=== PATIENT | female | born 1940 | race Caucasian/White ===

== ENCOUNTER 2019-10-10 10:45 | Emergency (ER) | payer MEDICARE, BC ==
[~2019-10-10] VITALS: Ht 172.7 cm; Wt 74.8 kg
--- OUTSIDE RECORDS SUMMARY | ~2019-10-10 | XMS | Encounter Summary ---
Demographics + + + | Address | [address] | | | [place] [address] | + + + | Home Phone | | + + + | Preferred Language | Unknown | + + + | Marital Status | | + + + | Mu-Ism Affiliation | Unknown | + + + | Race | Unknown | + + + | Ethnic Group | Unknown | + + + Author + + + | Author | [facility] | | | and [place] | + + + | Organization | [facility] | | | and [place] | + + + | Address | Unknown | + + + | Phone | Unavailable | + + + Support + + +---------+ + | Name | Relationship | Address | Phone | + + +---------+ + | Katerina Dada | ECON | Unknown | | + + +---------+ + | Benjaímn Garland | ECON | Unknown | | + + +---------+ + | Tiago Garland | ECON | Unknown | | + + +---------+ + Care Team Providers + +------+ + | Care Computer Salesperson Retail Name | Role | Phone | + +------+ + | Michael Almonte DO | PCP | | + +------+ + Reason for Visit + + + | Reason | Comments | + + + | Follow-up | 3 month | + + + Encounter Details +--------+---------+ + + + | Date | Type | Department | Care Team | Description | +--------+---------+ + + + | 08/10/ | Office | [facility] | Shoshana Ortega DO | Persistent atrial | | 2019 | Visit | [facility]IOLOGY [place] | [address] | fibrillation | | | | [address] | [place], [place] | (Primary Dx); On | | | | [address] | [phone] | amiodarone therapy; | | | | [place], [place] | | Dissection of aorta, | | | | [address] | | unspecified portion | | | | [phone] | | of aorta (HCC); HTN | | | | | | (hypertension), | | | | | | benign; | | | | | | Hyperlipidemia, | | | | | | unspecified | | | | | | hyperlipidemia type; | | | | | | Stage 4 very severe | | | | | | COPD by GOLD | | | | | | classification (HCC) | +--------+---------+ + + + Social History + +-------+ +--------+------+ | Tobacco Use | Types | Packs/Day | Years | Date | | | | | Used | | + +-------+ +--------+------+ | Former Smoker | | | | | + +-------+ +--------+------+ + +---+---+---+ | Smokeless Tobacco: | | [...] + + documented as of this encounter Last Filed Vital Signs + + + + + | Vital Sign | Reading | Time Taken | Comments | + + + + + | Blood Pressure | 132/58 | 08/10/2019 1:37 PM | | | | | PST | | + + + + + | Pulse | 51 | 08/10/2019 1:37 PM | | | | | PST | | + + + + + | Temperature | - | - | | + + + + + | Respiratory Rate | - | - | | + + + + + | Oxygen Saturation | 79% | 08/10/2019 1:37 PM | | | | | PST | | + + + + + | Inhaled Oxygen | - | - | | | Concentration | | | | + + + + + | Weight | 77.6 kg (171 lb) | 08/10/2019 1:37 PM | | | | | PST | | + + + + + | Height | 172.7 cm (5' 8") | 08/10/2019 1:37 PM | | | | | PST | | + + + + + | Body Mass Index | 26 | 08/10/2019 1:37 PM | | | | | PST | | + + + + + documented in this encounter Progress Notes Shoshana Ortega DO - 08/10/2019 1:40 PM PST [facility] Cardiology Cardiology Follow Up Note Reason for Consultation: afib Requesting Physician: Dr. 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 Sternal MSSA infection Right MCA stroke in 2014 Noncardiac problem list Hypothyroidism COPD Osteoporosis The patient is a 79-year-old female with the above past medical history who presents to the cardiology office for initial consultation regarding a history of atrial fibrillation. The patient had a type 2 aortic dissection in 2014 and had to undergo a surgical repair of her ascending aorta and aortic arch, followed by endovascular repair of her abdominal aorta. Kamilah garcia had a prolonged hospitalization after this, necessitating placement of a tracheostomy and a PEG tube. Since this hospitalization, she has been on oxygen therapy. She also develope d atrial fibrillation during the hospitalization and had a CVA during her AAA procedure. Kamilah garcia was rhythm controlled with amiodarone. She followed up with cardiology in [place]. She was previously on anticoagulation, however, she was felt to be high risk for blood thinners and was subsequently offered a Watchman device. A Watchman was placed in 2018 and she was taken off of her anticoagulation thereafter. Lately, the patient has been feeling about her baseline. She occasionally has mild fleetin g chest pains, which are alleviating with nitroglycerin. She reports that these are rare an d sporadic. She is on 4 liters of oxygen via nasal cannula. Because of her breathing issue s, she is not very active. She is able to do all of her ADLs, but her has to help h er with some of the heavier house chores and needs to be present while she is showering due to balance issues. She sees a security patrol driver in [place], but is interested in transferring her care to pulmonology in [place]. She denies any recent episodes of palpitations or par oxysms of atrial fibrillation that she is aware of. She admits to occasionally getting ligh theaded and dizzy, this is usually when she has issues with breathing. She admits to lower extremity swelling. Over the past week, she has had significant swelling in her left lower extremity as compared to her right. She denies any calf pain. She denies any abrupt henderson es in her breathing. She denies any orthopnea or PND. She denies any recent significant we ight gain. Her blood pressures are generally well controlled. She is noted to be bradycard ic today with a heart rate of 54 beats per minute. Interim History I last saw the patient on 05/18/2019. At that time, she was noted to have unilateral lower extremity edema. A lower extremity ultrasound was obtained and was negative for DVT. We o btained a 2-week event monitor as well as a chest x-ray and she was referred to Pulmonology in [place]. Her 2-week event monitor was notable for sinus bradycardia with an average hea rt rate of 53 beats per minute. There was a 5.58 percent burden of ventricular ectopy. Th ere were no episodes of atrial fibrillation on that study. The chest x-ray was done on 03/2019, which demonstrated post-surgical changes, interstitial thickening suggesting fibrosi s. Since we last saw each other, she has had persistent shortness of breath. She notices i t more when she is in a hurry. She was doing pulmonary rehab, but has been lacks in her exe rcise program recently. She denies any orthopnea or PND. She denies any paroxysms of AFib that she is aware of. She denies any episodes of syncope or presyncope. Review of Systems Constitutional: positive for fatigue. HENT: Negative for nosebleeds. Eyes: Negative for visual disturbance. Respiratory: Negative for cough and positive for shortness of breath. Cardiovascular: see HPI Gastrointestinal: Negative for nausea, vomiting, abdominal pain and blood in stool. Genitourinary: Negative for hematuria or dysuria. Musculoskeletal: Negative for myalgias, back pain and arthralgias. Skin: Negative for color change. Neurological: Negative for syncope and numbness. Positive for occasional dizziness. Hematological: Does not bruise/bleed easily. Psychiatric/Behavioral: The patient is not nervous/anxious. PAST MEDICAL & SURGICAL HISTORY Past Medical History: Diagnosis Date AAA (abdominal aortic aneurysm) (HCC) Angina pectoris (HCC) Arrhythmia Atrial fibrillation (HCC) DM2 (diabetes mellitus, type 2) (HCC) 10/11/2015 HLD (hyperlipidemia) 10/11/2015 HTN (hypertension), benign 03/18/2015 Stroke (HCC) Past Surgical History: Procedure Laterality Date APPENDECTOMY CARDIAC CATHERIZATION SECTION X 2 CHOLECYCTOSTOMY CORONARY ARTERY BYPASS GRAFT HYSTERECTOMY left atrial appendage closure device surgery STENT PLACEMENT ADDITIONAL VESS sternum surgery TONSILLECTOMY TRACHEAL SURGERY MEDICATIONS Home Medications Outpatient Encounter Medications as of 08/10/2019 Medication Sig Dispense Refill Acetaminophen (TYLENOL 8 HOUR PO) Take by mouth. amiodarone (PACERONE) 200 mg tablet Take 200 mg by mouth Daily. aspirin 81 MG tablet Take 81 mg by mouth Daily. atorvaSTATin (LIPITOR) 40 mg tablet Take 40 mg by mouth nightly. cephalexin (KEFLEX) 500 mg capsule Take 500 mg by mouth 4 times daily. cholecalciferol (VITAMIN D-3) 2000 units TABS Take 2,000 Units by mouth Daily. FLUTICASONE PROPIONATE, NASAL, NA by Nasal route. furosemide (LASIX) 20 mg tablet Take 20 mg by mouth 2 times daily. levothyroxine (SYNTHROID) 100 mcg tablet Take 100 mcg by mouth every morning (before br eakfast). melatonin 3 mg TABS Take by mouth nightly as needed. metoprolol tartrate (LOPRESSOR) 50 mg tablet Take 25 mg by mouth 2 times daily. potassium chloride (KLOR-CON) 20 MEQ packet Take 8 mEq by mouth 2 times daily. tiotropium (SPIRIVA HANDIHALER) 18 mcg inhalation capsule Inhale 18 mcg into the lungs Daily. UNABLE TO FIND Med Name: Albuterol Ventolin inhaler venlafaxine (EFFEXOR) 75 MG tablet Take 75 mg by mouth 3 times daily. No facility-administered encounter medications on file as of 08/10/2019. Allergies Allergies Allergen Reactions Percocet [Oxycodone] Other (See Comments) "MADE HER CRAZY!' FAMILY HISTORY Family History Problem Relation Age of Onset Heart disease Mother Stroke Father SOCIAL HISTORY Social History Socioeconomic History Marital status: Spouse name: Not on file Number of children: Not on file Years of education: Not on file Highest education level: Not on file Occupational History Not on file Social Needs Financial resource strain: Not on file Food insecurity: Worry: Not on file Inability: Not on file Transportation needs: Medical: Not on file Non-medical: Not on file Tobacco Use Smoking status: Former Smoker Smokeless tobacco: Never Used Substance and Sexual Activity Alcohol use: Yes Drug use: Never Sexual activity: Not on file Lifestyle Physical activity: Days per week: Not on file Minutes per session: Not on file Stress: Not on file Relationships Social connections: Talks on phone: Not on file Gets together: Not on file Attends roman catholic service: Not on file Active member of club or organization: Not on file Attends meetings of clubs or organizations: Not on file Relationship status: Not on file Intimate partner violence: Fear of current or ex partner: Not on file Emotionally abused: Not on file Physically abused: Not on file Forced sexual activity: Not on file Other Topics Concern Not on file Social History Narrative Not on file PHYSICAL EXAM Vital Signs: There were no vitals taken for this visit. Physical Exam GENERAL: Well developed, well nourished, in no distress. Appears approximately stated age . HEENT: Normocephalic, atraumatic. EYES: PERRL, sclerae anicteric, no xanthelsasmas NECK: No JVD, lymphadenopathy, thyromegaly, bruits. Carotid pulses are 2+ bilaterally LUNGS: On NC oxygen. Clear bilaterally, with no rales, rhonchi or wheezing noted, respirat ions unlabored HEART: Nondisplaced PMI, regular rate and rhythm, S1, S2 normal. No murmurs, rubs or gall ops noted. ABDOMEN: Soft, nontender, no organomegaly, masses or bruits. Bowel sounds are normal in a ll 4 quadrants. EXTREMITIES: No edema. Radial pulses 2+ bilaterally. DP and PT pulses are 2+ bilaterally. SKIN: Warm and dry, capillary refill is normal, no lesions. NEUROLOGIC: Awake, alert and oriented x 3. No focal motor deficits. PSYCHIATRIC: Appropriate, affect appears normal DATA Recent blood work from 10/17/2018 reviewed including white blood cell count 6.1, hemoglobin 13, hematocrit of 40, platelet count 121, total cholesterol 133, triglycerides 110, HDL 51, LDL 60, sodium 139, potassium 4.4, chloride 99, carbon dioxide 26, glucose 173, BUN 18, cre atinine 1.07, AST 21, ALT 16, alkaline phosphatase 146, total bilirubin 1.5, hemoglobin A1c 6.4. Recent blood work from 04/17/2019 reviewed including sodium 141, potassium 3.7, chloride 10 3, carbon dioxide 26, glucose 162, BUN 12, creatinine 1.13, GFR 47, AST 24, ALT 17, alkaline phosphatase 155, total bilirubin 1.6, hemoglobin A1c 6.5, TSH 0.675, white blood cell count 5, hemoglobin 12.1, hematocrit 37.9, platelet count 106. EK05/19/19 ordered and reviewed by myself. Sinus bradycardia 50BPM, non specific t wave a bnormality 08/10/2019 ordered and reviewed by myself sinus bradycardia 48 bpm, right axis deviation, n onspecific interventricular conduction delay, nonspecific ST-T wave abnormality. Last Echo: VINCENT 11/16/17 Conclusions 1. The estimated ejection fraction is 65-70%. 2. No thrombus is visualized within the left atrium. 3. There is no thrombus visualized in the left atrial appendage.VINCENT- one year post-Watchman. A 27-mm Watchman occluder device was placed occluding the left atrial appendage. The device appears well seated. 4. The right ventricular global systolic function is normal. 5. There is trace aortic regurgitation. 6. There is mild mitral regurgitation. 7. There is mild tricuspid regurgitation. 8. There is trace pulmonic regurgitation. 9. There is no pericardial effusion. Last stress test: Last cath: 2014 Impression: 1.Large-caliber right coronary artery with [id number] eccentric stenosis in its proximal portion. 2.Mild stenosis in the mid portion of the left circumflex artery. 3.No significant disease in the remainder of the coronary tree. 4.Left ventricular end-diastolic pressure is modestly elevated at 20 mmHg. 5.Normal left ventricular size and function. Carotid US: AAA screening: Lower extremity US: 08/03/2019 no evidence of DVT. OTHERS: 2 week event monitor 05/25/19 Procedure: Continuous ambulatory ECG for the duration of 13 days. During this recording, t he underlying rhythm is sinus, the lowest heart rate was 38 BPM, the highest heart rate 70 B PM, averaging 53 BPM. During this recording interval, 5025 PACs were recorded; including 31 couplets and one triplet. There were 6 runs of atrial tachycardia the longest of which was 6 beats at 107 bpm, the fastest of which was 4 beats at 118 bpm. She had an overall burden of 0.36% supraventricular ectopic beats. Also, [id number] PVCs were recorded; this represents 5 .58% ventricular ectopic burden. There were no runs of ventricular tachycardia. No pauses or AV conduction abnormalities observed. In the patient's diary, symptoms of shortness of br eath, unspecified symptom, other symptom, headache, dizziness, palpitations, chest discomfor t were all associated with sinus bradycardia. ASSESSMENT & PLAN 1. Paroxysmal atrial fibrillation 2. History of watchman left atrial closure device 3. Sinus bradycardia 4. Hypertension 5. Hyperlipidemia 6. 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 7. Sternal MSSA infection 8. Right MCA stroke in 2014 9. Hypothyroidism 10. Severe COPD - The patient is a 79 yo female with the above past medical history who presents to the car diology office to follow up. She has been rhythm controlled with amiodarone since 2014g h she has severe COPD. She is currently not on anticoagulation due to history of Watchman de vice placement. Recently, she has been doing well from a cardiac standpoint. She underwent a recent 2-week ambulatory monitor which demonstrated an average heart rate of 53 bpm. She denies any episodes of syncope or presyncope. She is on both metoprolol and amiodarone whic h both may be contributing to her bradycardia. She has follow-up with pulmonology next terence h. - Continue ASA 81mg, atorvastatin 40mg daily - Continue amiodarone 200mg po daily -Discontinue metoprolol tartrate 25 mg by mouth twice daily - Continue lasix 20mg po bid - follow up with pulmonology as scheduled - Follow up in 6 months Thank you for allowing me to participate in the care of this patient. Primary Care Physician: DO Shoshana Larios DO 08/10/2019 documented in this enco unter Plan of Treatment +--------+---------+ + + + | Date | Type | Specialty | Care Team | Description | +--------+---------+ + + + | 02/07/ | Office | Cardiology | Shoshana Ortega DO | | | 2019 | Visit | | [address] | | | | | | [place] | | | | | | [id number] | | | | | | | | +--------+---------+ + + + | 03/05/ | Office | Pulmonology | Ronan Rosas MD | | | 2019 | Visit | | [address] | | | | | | [place] | | | | | | [address] | | | | | | | | +--------+---------+ + + + documented as of this encounter Procedures + +--------+ + + + | Procedure Name | Priori | Date/Time | Associated Diagnosis | Comments | | | ty | | | | + +--------+ + + + | ECG 12 LEAD | Routin | 08/10/2019 | Persistent atrial | Results for this | | | e | 1:47 PM | fibrillation On | procedure are in the | | | | PST | amiodarone therapy | results section. | + +--------+ + + + documented in this encounter Results ECG 12 lead (08/10/2019 1:47 PM PST) + + + + + + | Component | Value | Ref Range | Performed | Pathologist | | | | | At | Signature | + + + + + + | VENTRICULAR | 48 | BPM | [facility] | | | RATE EKG | | | | | + + + + + + | ATRIAL RATE | 48 | BPM | [facility] | | + + + + + + | P-R | 202 | ms | [facility] | | | INTERVAL | | | | | + + + + + + | QRS | 124 | ms | [facility] | | | DURATION | | | | | + + + + + + | Q-T | 508 | ms | [facility] | | | INTERVAL | | | | | + + + + + + | Q-T | 453 | ms | [facility] | | | INTERVAL | | | | | | (CORRECTED) | | | | | + + + + + + | P WAVE AXIS | 62 | degrees | [facility] | | + + + + + + | QRS AXIS | -94 | degrees | [facility] | | + + + + + + | T AXIS | 113 | degrees | [facility] | | + + + + + + | INTERPRETAT | Please refer to | | [facility] | | | ION TEXT | Providers office visit | | | | | | note for Providers | | | | | | Interpretation.Confirmed | | | | | | by [facility] [place] Read Only, | | | | | | [facility] [address] ([id number]), | | | | | | editor in chief Salvatore Huggins | | | | | | ([id number]) on 08/10/2019 | | | | | | 2:14:15 PM | | | | + + + + + + + + | Specimen | + + | | + + + + + | Narrative | Performed At | + + + | | | + + + + +---------+ + + | Performing | Address | City/State/Zipcode | Phone Number | | Organization | | | | + +---------+ + + | [facility] | | | | + +---------+ + + documented in this encounter Visit Diagnoses + + | Diagnosis | + + | Persistent atrial fibrillation - Primary Atrial fibrillation | + + | On amiodarone therapy | + + | Dissection of aorta, unspecified portion of aorta (HCC) | + + | HTN (hypertension), benign Essential hypertension, benign | + + | Hyperlipidemia, unspecified hyperlipidemia type | + + | Stage 4 very 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
--- OUTSIDE RECORDS SUMMARY | ~2019-10-10 | XMS | Encounter Summary ---
Demographics + + + | Address | [address] | | | [place] [address] | + + + | Home Phone | | + + + | Preferred Language | Unknown | + + + | Marital Status | | + + + | Druze Affiliation | Unknown | + + + | Race | Unknown | + + + | Ethnic Group | Unknown | + + + Author + + + | Author | [facility] | | | and [place] | + + + | Organization | [facility] | | | [...] Team Providers + +------+ + | Care Environmental Health Safety Manager Name | Role | Phone | + [...] + + | 08/10/ | Office | [facility] | Shoshana Ortega DO | Persistent atrial | | 2019 | Visit | [facility]ARDIOLOGY [place] | [address] | fibrillation | | | | [address] | [place], [place] | (Primary Dx); On | | | | [address] | [phone] | amiodarone therapy; | | | | [place], [place] | | Dissection of aorta, | | | | [address] | | unspecified portion | | | | [phone] | | of aorta (HCC); HTN | [...] Ortega DO - 08/10/2019 1:40 PM PST [facility] Cardiology Cardiology Follow Up Note Reason for [...] amiodarone. She followed up with cardiology in [place]. She was previously on anticoagulation, however, she [...] due to balance issues. She sees a jet inspector in [place], but is interested in transferring her care to pulmonology in [place]. She denies any recent episodes of palpitations [...] and she was referred to Pulmonology in [place]. Her 2-week event monitor was notable for [...] file Gets together: Not on file Attends jehovah's witness service: Not on file Active member of [...] 2014 Impression: 1.Large-caliber right coronary artery with jyqo-kv-znfhtxuu eccentric stenosis in its proximal portion. 2.Mild [...] burden of 0.36% supraventricular ectopic beats. Also, [id number] PVCs were recorded; this represents 5 .58% [...] [place] | | | | | | [address] | | | | | | | | +--------+---------+ + + + | 03/05/ | Office | Pulmonology | Ronan Rosas MD | | | 2019 | Visit | | [address] | | | | | | [place] | | | | | | [address] | | | | | | | [...] | | | | | by [facility] [place] [facility], | | | | | | [facility] [address] ([id number]), | | | | | | brands editor Salvatore Huggins | | | | | | ([id number]) on 08/10/2019 | | | | | [...]
--- OUTSIDE RECORDS SUMMARY | ~2019-10-10 | XMS | Clinical Summary ---
Demographics + + + | Address | [address] | | | [place] [address] | + + + | Home Phone | | + + + | Preferred Language | Unknown | + + + | Marital Status | | + + + | Anglican Affiliation | Unknown | + + + | Race | Unknown | + + + | Ethnic Group | Unknown | + + + Author + + + | Author | [facility] (Historical as of | | | 05-13-19) | + + + | Organization | [facility] (Historical as of | | | 05-13-19) | + + + | Address | Unknown | + + + | Phone | Unavailable | + + + Support + + +---------+ + | Name | Relationship | Address | Phone | + + +---------+ + | Tiago Wiley | ECON | Unknown | | + + +---------+ + Care Team Providers + +------+ + | Care Exchange Architect Name | Role | Phone | + +------+ + | Michael Almonte DO | PP | | + +------+ + Allergies Not on File Current Medications Not on file Active Problems Not on file Social History + +-------+ +--------+------+ | Tobacco Use | Types | Packs/Day | Years | Date | | | | | Used | | + +-------+ +--------+------+ | Never Assessed | | | | | + +-------+ +--------+------+ + + + | Sex Assigned at | Date Recorded | | | | + + + | Not on file | | + + + Plan of Treatment + + + + + | Health Maintenance | Due Date | Last Done | Comments | + + + + + | Vaccine: | | | | | Dtap/Tdap/Td (1 - | 0 | | | | Tdap) | | | | + + + + + | Vaccine: Zoster (1 | | | | | of 2) | 1 | | | + + + + + | DEXA SCAN SCREENING | | | | | | 6 | | | + + + + + | Vaccine: Influenza | | 07/27/2016, 06/01/2015 | | | (#1) | 9 | | | + + + + + | Vaccine: | Completed | 07/27/2016, 04/21/2015 | | | Pneumococcal 65+ | | | | | Low/Medium Risk | | | | + + + + + Results Not on filefrom Last 3 Months Insurance + +--------+ +------+-------+ + | Payer | Benefi | Subscriber | Type | Phone | Address | | | t Plan | ID | | | | | | / | | | | | | | Group | | | | | + +--------+ +------+-------+ + | MEDICARE | MEDICA | [id number] | | | [address] | | | RE | | | | [place] [address] | | | IP-OP | | | | | + +--------+ +------+-------+ + | PREMERA | PREMER | [id number] | | | [address] [address] | | | A BLUE | 4 | | | [place], [place] | | | CARD | | | | [phone] | + +--------+ +------+-------+ + + +--------+ +--------+ + + | Guarantor Name | Accoun | Relation to | Date | Phone | Billing Address | | | t Type | Patient | of | | | | | | | | | | + +--------+ +--------+ + + | JACLYN WILEY | Person | Self [birth year] Home: | | | | al/Fam | | 1940 | [phone] | [place] | | | [place] | | | [phone] | [phone] | + +--------+ +--------+ + +"
--- OUTSIDE RECORDS SUMMARY | ~2019-10-10 | XMS | Encounter Summary ---
Demographics + + + | Address | [address] | | | [place] [address] | + + + | Home Phone | | + + + | Preferred Language | Unknown | + + + | Marital Status | | + + + | Sikhism Affiliation | Unknown | + + + | Race | Unknown | + + + | Ethnic Group | Unknown | + + + Author + + + | Author | [facility] | | | and [place] | + + + | Organization | [facility] | | | [...] Team Providers + +------+ + | Care Furnace Converter Name | Role | Phone | + [...] + + | 10/04/ | Refill | [facility] | Alejandra Barraza | Medication Refill | | 2020 | | CARDIOLOGY [place], Chemistry Intern | | | | | [address] | | | | | | [place] | | | | | | [address] | | | | | | [phone] | | | +--------+--------+ + + + [...] [place] | | | | | | [address] | | | | | | | | +--------+---------+ + + + | 03/05/ | Office | Pulmonology | Ronan Rosas MD | | | 2019 | Visit | | [address] | | | | | | [place] | | | | | | [address] | | | | | | | | +--------+---------+ + + + documented as of this encounter Visit Diagnoses Not on filedocumented in this encounter"
--- OUTSIDE RECORDS SUMMARY | ~2019-10-10 | XMS | Clinical Summary ---
Demographics + + + | Address | [address] | | | [place] [address] | + + + | Home Phone | | + + + | Preferred Language | Unknown | + + + | Marital Status | | + + + | Mu-Ism Affiliation | Unknown | + + + | Race | Unknown | + + + | Ethnic Group | Unknown | + + + Author + + + | Author | [facility] | | | and [place] | + + + | Organization | [facility] | | | [...] Team Providers + +------+ + | Care Nuclear Scientist Name | Role | Phone | + [...] | | 2020 | | | Jacobo Mess Attendant Crew | | +--------+ + + + + [...] | | 2019 | on | | Mess Attendant Crew | | +--------+ + + + + [...] | | | | | | classification ([facility]) | +--------+ + + + + from [...] [place] | | | | | | [address] | | | | | | | | +--------+---------+ + + + | 03/05/ | Office | Pulmonology | Ronan Rosas MD | | | 2020 | Visit | | [address] | | | | | | [place] | | | | | | [address] | | | | | | | [...] | | | | | by [facility] Read [facility], | | | | | | [facility] (502), | | | | | | photographic editor Salvatore Huggins | | | | | | (513) on 08/10/2019 | | | | | [...] +--------+ +---------+--------+ | MEDICARE | MEDICA | [id number] | 01/26/20 | [phone] | | Medica | | | RE | | 06-Pre | 5 | | re | | | PART A | | sent | | | | | | AND B | | | | | | + +--------+ +--------+ +---------+--------+ | BCBS | BCBS | [id number] | 09/27/19 | | | Indemn | [...] | | al/Fam | | 1940 | [phone] | [place] | | | [place] | | | 7 (Home) | [address] | + +--------+ +--------+ + + Advance Directives + + + + + | Type | Date Recorded | Patient | Explanation | | | | Soft Metals Hand Engraver | | + + + + + | Power of | | | | | Horticultural Nursery Assistant | | | | + + + + + | Advance | | | | | Directive | | | | + + + + +
--- OUTSIDE RECORDS SUMMARY | ~2019-10-10 | XMS | Clinical Summary ---
Demographics + + + | Address | [address] | | | [place] [address] | + + + | Home Phone | | + + + | Preferred Language | Unknown | + + + | Marital Status | | + + + | Methodist Affiliation | Unknown | + + + | Race | Unknown | + + + | Ethnic Group | Unknown | + + + Author + + + | Author | [facility] (Historical as of | | | 05-13-19) | + + + | Organization | [facility] (Historical as of | | | 05-13-19) [...] Team Providers + +------+ + | Care Pharmacy Affairs Assistant Name | Role | Phone | + [...] +------+-------+ + | MEDICARE | MEDICA | [id number] | | | [address] | | | RE | | | | [place] [address] | | | IP-OP | | | | | + +--------+ +------+-------+ + | PREMERA | PREMER | [id number] | | | [address] [address] | | | A BLUE | 4 | | | [place], [place] | | | CARD | | | | [address] | + +--------+ +------+-------+ + + +--------+ [...] | [place] | | | [address] | [address] | + +--------+ +--------+ + +"
--- OUTSIDE RECORDS SUMMARY | ~2019-10-10 | XMS | Encounter Summary ---
Demographics + + + | Address | [address] | | | [place] [address] | + + + | Home Phone | | + + + | Preferred Language | Unknown | + + + | Marital Status | | + + + | Christian Affiliation | Unknown | + + + | Race | Unknown | + + + | Ethnic Group | Unknown | + + + Author + + + | Author | [facility] | | | and [place] | + + + | Organization | [facility] | | | and [...] Team Providers + +------+ + | Care It Disaster Recovery Manager Name | Role | Phone | + +------+ + | Michael Almonte DO | PCP | | + +------+ + Reason for Visit +--------+ + | Reason | Comments | +--------+ + | Other | COPD | +--------+ + Evaluate & Treat (Routine) + + + + + + + | Status | Reason | Specialty | Diagnoses / | Referred By | Referred To | | | | | Procedures | Contact | Contact | + + + + + + + | Authorized | Specialty | Pulmonary | Diagnoses | Ortega, | Tan | | | Services | Disease / | Chronic | DO Shoshana | Pulmonology | | | Required | Pulmonology | obstructive | [address] | | | | | pulmonary | [address] | [address] | | | | | disease, | [place] | [place], [place] | | | | | unspecified | [place], [place] | [address] | | | | | COPD type | [address] | Phone: | | | | | ([facility]) | Phone: | [phone] | | | | | | [phone] | Fax: | | | | | | Fax: | [phone] | | | | | | [phone] | | + + + + + + + Encounter Details +--------+---------+ + + + | Date | Type | Department | Care Team | Description | +--------+---------+ + + + | 08/29/ | Office | [facility] | Ronan Rosas MD | Oxygen dependent | | 2019 | Visit | PULMONOLOGY [address] | [address] | (Primary Dx); Stage | | | | [address] | [place], [place] | 4 very severe COPD | | | | [place], [place] | [id number] | by GOLD | | | | [address] | | classification (HCC) | | | | [phone] | | | +--------+---------+ + + + Social History [...] + documented in this encounter Progress Notes Ronan Rosas MD - 08/29/2019 1:20 PM PST Subjective: Patient ID: Jaclyn Garland 79 y.o. is here for establishing care for COPD . HPI Patient's medications, allergies, past medical, surgical, social and family histories were obtained and reviewed as appropriate. The patient is a pleasant 79-year-old female with past medical history of severe COPD who i s being followed up in [place] for the past many years. She has recently decided to move h er care to pulmonology services close to her house as her independent beauty consultant has also changed to [facility] clinic. The patient has a history of stroke, atrial fibrillation, arrhythmia and abdo guru aortic aneurysm. In 2014 the patient had a type B aortic dissection and was admitted and intubated and was in the hospital for 2 to 3 months. She also had a stroke at the same time and had tracheostomy. She was successfully decannulated and now has been followed up w daniel Newby in [facility]. She has been managed with Spiriva which she has been using regularly. She denies any frequ ent hospitalizations. She has very minimal activity because of stroke and that she likes to stay indoors. She very rarely goes to grocery shopping with her daughter. She is on chron ic oxygen which he uses 3 L continuous at home and 4 L pulsed when walking. In the past she was worked up for obstructive sleep apnea and was found to have hypoxia wit h no apneic interval. She was advised to continue oxygen and the hypoxia in the night was f elt secondary to COPD. She has atrial fibrillation and she has a watchman device. She is a former smoker who quit in 2010. She did secretarial jobs. She has no major chemi stanton exposure. She is a heavy alcohol drinker and continues to drink alcohol. Review of Systems Constitutional: Positive for weight loss. HENT: Negative. Respiratory: Positive for cough and shortness of breath. Cardiovascular: Negative. Gastrointestinal: Negative. Genitourinary: Negative. Musculoskeletal: Negative. Skin: Negative. Neurological: Negative. Endo/Heme/Allergies: Negative. Psychiatric/Behavioral: Negative. History: Past Medical History: Diagnosis Date AAA (abdominal [...] ADDITIONAL VESS sternum surgery TONSILLECTOMY TRACHEAL SURGERY Social History Socioeconomic History Marital status: Spouse [...] file Tobacco Use Smoking status: Former Smoker Packs/day: 0.50 Years: 50.00 Pack years: 25.00 Last attempt to quit: 2013 Years since quittin.9 Smokeless tobacco: Never Used Substance and Sexual Activity Alcohol use: Yes Drug use: Never Sexual activity: Not on file Lifestyle Physical activity: Days per week: Not on file Minutes per session: Not on file Stress: Not on file Relationships Social connections: Talks on phone: Not on file Gets together: Not on file Attends jainism service: Not on file Active member of [...] file Social History Narrative Not on file Family History Problem Relation Age of Onset Heart disease Mother Stroke Father Allergies: Allergies Allergen Reactions Percocet [Oxycodone] Other (See Comments) "MADE HER CRAZY!' Current Medications: Current Outpatient Medications on File Prior to Visit Medication Sig Dispense Refill Acetaminophen (TYLENOL 8 [...] TABS Take by mouth nightly as needed. Nitroglycerin (NITROSTAT SL) Place under the tongue. potassium chloride (KLOR-CON) 20 MEQ packet Take 8 mEq by mouth 2 times daily. tiotropium (SPIRIVA HANDIHALER) 18 mcg inhalation capsule Inhale 18 mcg into the lungs Daily. UNABLE TO FIND Med Name: Albuterol Ventolin inhaler venlafaxine (EFFEXOR) 75 MG tablet Take 75 mg by mouth 3 times daily. No current facility-administered medications on file prior to visit. Objective: Vitals: 08/29/19 1323 BP: 121/64 Pulse: 109 PainSc: 0 - No pain Physical Exam Constitutional: She is oriented to person, place, and time and well-developed, well-nourish ed, and in no distress. HENT: Head: Normocephalic and atraumatic. Mouth/Throat: No oropharyngeal exudate. Eyes: Pupils are equal, round, and reactive to light. Conjunctivae and EOM are normal. Neck: Normal range of motion. Neck supple. No JVD present. No tracheal deviation present. Cardiovascular: Normal rate, regular rhythm and normal heart sounds. No murmur heard. Pulmonary/Chest: Effort normal and breath sounds normal. No respiratory distress. She has n o wheezes. She has no rales. She exhibits no tenderness. Musculoskeletal: Normal range of motion. General: No edema. Neurological: She is alert and oriented to person, place, and time. No cranial nerve defici t. Gait normal. Skin: Skin is warm. Psychiatric: Affect and judgment normal. Chart review from legacy visits was done Assessment and plan 1. Oxygen dependent I have advised the patient to continue using oxygen at 3 to 4 L/min to keep oxygen saturati on more than 89%. 2. 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 She seems to be doing wel l on Spiriva. She has no frequent exacerbations. She will use albuterol as needed. She is not a good candidate for lung cancer screening du e to being oxygen dependent. Thank you for allowing me to participate in your patient's care. We will review test result s that we have ordered with the patient once they become available. A return visit has been scheduled in 6 months. Ronan Rosas MD Pulmonary and Critical Care Medicine [facility] [address] , [place] [address] documented in this enco unter Plan of Treatment +--------+---------+ + + + | Date | Type | Specialty | Care Team | Description | +--------+---------+ + + + | 02/07/ | Office | Cardiology | Shoshana Ortega DO | | | 2019 | Visit | | [address] | | | | | | [place] | | | | | | [phone] | | | | | | | | +--------+---------+ + + + | 03/05/ | Office | Pulmonology | Ronan Rosas MD | | | 2019 | Visit | | [address] | | | | | | [place] | | | | | | [address] | | | | | | | | +--------+---------+ + + + documented as of this encounter Visit Diagnoses + + | Diagnosis | + + | Oxygen dependent - Primary Dependence on supplemental oxygen | + + | Stage 4 very 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
--- OUTSIDE RECORDS SUMMARY | ~2019-10-10 | XMS | Encounter Summary ---
Demographics + + + | Address | [address] | | | [place] [address] | + + + | Home Phone | | + + + | Preferred Language | Unknown | + + + | Marital Status | | + + + | Hinduism Affiliation | Unknown | + + + | Race | Unknown | + + + | Ethnic Group | Unknown | + + + Author + + + | Author | [facility] | | | and [place] | + + + | Organization | [facility] | | | [...] Team Providers + +------+ + | Care Director Of Speech Pathology Name | Role | Phone | + [...] | | disease, | [address] | [place], [place] | | | | | unspecified | [place], [place] | [address] | | | | | COPD type | [address] | Phone: | | | | | ([facility]) | Phone: | [phone] | | | | | | [phone] | Fax: | | | | | | Fax: | [phone] | | | | | | [phone] | | + + + + + + + Encounter Details +--------+---------+ + + + | Date | Type | Department | Care Team | Description | +--------+---------+ + + + | 08/29/ | Office | [facility] | Ronan Rosas MD | Oxygen dependent | | 2019 | Visit | PULMONOLOGY [address] | [address] | (Primary Dx); Stage | | | | [address] | [place], [place] | 4 very severe COPD | | | | [place], [place] | [id number] | by GOLD | | | | [address] | | classification (HCC) | | | | [phone] | | | +--------+---------+ + + + [...] who i s being followed up in [place] for the past many years. She has recently decided to move h er care to pulmonology services close to her house as her standard machine stitcher has also changed to [facility] clinic. The patient has a history of [...] been followed up w daniel Newby in [facility]. She has been managed with Spiriva which [...] file Gets together: Not on file Attends moravian service: Not on file Active member of [...] Rosas MD Pulmonary and Critical Care Medicine [facility] [address] , [place] [address] documented in this enco unter Plan of Treatment +--------+---------+ + + + | Date | Type | Specialty | Care Team | Description | +--------+---------+ + + + | 02/07/ | Office | Cardiology | Shoshana Ortega DO | | | 2019 | Visit | | [address] | | | | | | [place] | | | | | | [phone] | | | | | | | | +--------+---------+ + + + | 03/05/ | Office | Pulmonology | Ronna Rosas MD | | | 2019 | Visit | | [address] | | | | | | [place] | | | | | | [address] | | | | | | | | +--------+---------+ + + + documented as of this encounter Visit Diagnoses + + | Diagnosis | + + | Oxygen dependent - Primary Dependence on supplemental oxygen | + + | Stage 4 very 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
--- OUTSIDE RECORDS SUMMARY | ~2019-10-10 | XMS | Encounter Summary ---
Demographics + + + | Address | [address] | | | [place] [address] | + + + | Home Phone | | + + + | Preferred Language | Unknown | + + + | Marital Status | | + + + | Restoration Affiliation | Unknown | + + + | Race | Unknown | + + + | Ethnic Group | Unknown | + + + Author + + + | Author | [facility] | | | and [place] | + + + | Organization | [facility] | | | [...] Team Providers + +------+ + | Care Low Altitude Air Defense Officer Name | Role | Phone | + +------+ + | Michael Almonte DO | PCP | | + +------+ + Reason for Visit +--------+ + | Reason | Comments | +--------+ + | Other | Cardiac Event Monitor | +--------+ + Encounter Details +--------+ + + + + | Date | Type | Department | Care Team | Description | +--------+ + + + + | 05/25/ | Clinical | [facility] | Shoshana Ortega DO | Persistent atrial | | 2019 | Support | CARDIOLOGY [place] | [address] | fibrillation (HCC) | | | | [address] | [place] | | | | | [address] | [address] | | | | | [place] | | | | | | [address] | Oskar Quiles, | | | | | [phone] | MD [address] | | | | | | [place] | | | | | | [address] | | | | | | | | +--------+ + + + [...] documented as of this encounter Progress Notes Alejandra Barraza, Analyst [employer] - 05/25/2019 1:45 PM PDTCardiac Event Monitor placed on patient. EOB/Billing information discussed. Instructions given and understood. Patient instructed to call [facility] for any billing or monitor questions. JDW:FREIGHT CLAIM INVESTIGATOR-AAMA. [facility] umented in this encounter Plan of Treatment +--------+---------+ + + + | Date | Type | Specialty | Care Team | Description | +--------+---------+ + + + | 02/07/ | Office | Cardiology | Shoshana Ortega DO | | | 2019 | Visit | | [address] | | | | | | [place] | | | | | | [phone] | | | | | | | | +--------+---------+ + + + | 03/05/ | Office | Pulmonology | Ronan Rosas MD | | | 2019 | Visit | | [address] | | | | | | [place] | | | | | | [phone] | | | | | | | | +--------+---------+ + + + documented as of this encounter Visit Diagnoses + + | Diagnosis | + + | Persistent atrial fibrillation Atrial fibrillation | + + documented in this encounter"
--- OUTSIDE RECORDS SUMMARY | ~2019-10-10 | XMS | Encounter Summary ---
Demographics + + + | Address | [address] | | | [place] [address] | + + + | Home Phone | | + + + | Preferred Language | Unknown | + + + | Marital Status | | + + + | Hindu Affiliation | Unknown | + + + | Race | Unknown | + + + | Ethnic Group | Unknown | + + + Author + + + | Author | [facility] | | | and [place] | + + + | Organization | [facility] | | | and [...] | + + +---------+ + | Tiago Garalnd | ECON | Unknown | | + + +---------+ + Care Team Providers + +------+ + | Care Quality Lead Name | Role | Phone | + +------+ + | Michael Almonte DO | PCP | | + +------+ + Reason for Referral Evaluate & Treat (Routine) + + + + + + + | Status | Reason | Specialty | Diagnoses / | Referred By | Referred To | | | | | Procedures | Contact | Contact | + + + + + + + | Authorized | Specialty | Pulmonary | Diagnoses | Jordan | Tan | | | Services | Disease / | Chronic | DO Shoshana | Pulmonology | | | Required | Pulmonology | obstructive | [address] | | | | | pulmonary | [address] | [address] | | | | | disease, | [address] | [place], [place] | | | | | unspecified | [place], [place] | [address] | | | | | COPD type | [address] | Phone: | | | | | ([facility]) | Phone: | [phone] | | | | | | [phone] | Fax: | | | | | | Fax: | [phone] | | | | | | [phone] | | + + + + + + + Diagnostic/Screening (Routine) +--------+--------+ + + + + | Status | Reason | Specialty | Diagnoses / | Referred By | Referred To | | | | | Procedures | Contact | Contact | +--------+--------+ + + + + | Closed | | Radiology | Diagnoses | Ortega, | | | | | | Leg | DO Shoshana | | | | | | swelling | [address] | | | | | | Procedures | [address] | | | | | | VAS Lower | [address] | | | | | | Extremity | [place] | | | | | | Venous Left | [address] | | | | | | | Phone: | | | | | | | [phone] | | | | | | | Fax: | | | | | | | [phone] | | +--------+--------+ + + + + Reason for Visit + + + | Reason | Comments | + + + | New Patient | NEW PATIENT | + + + Evaluate & Treat (Routine) + +--------+ + + + + | Status | Reason | Specialty | Diagnoses / | Referred By | Referred To | | | | | Procedures | Contact | Contact | + +--------+ + + + + | Authorized | | Cardiology | Diagnoses | Kargar, | Ortega, | | | | | Persistent | Michael, DO | Shoshana DO | | | | | atrial | [address] | [address] | | | | | fibrillation | Tanya Mendiola | [address] | | | | | ([facility]), | [address] | [place], [place] | | | | | Presence of | [place], | [address] Phone: | | | | | other | [place] | [phone] | | | | | cardiac | [address] | Fax: | | | | | implants and | Phone: | [phone] | | | | | grafts | [phone] | | | | | | Procedures | Fax: | | | | | | Consult | [phone] | | + +--------+ + + + + Encounter Details +--------+---------+ + + + | Date | Type | Department | Care Team | Description | +--------+---------+ + + + | 05/18/ | Office | [facility] | Shoshana Ortega DO | Persistent atrial | | 2019 | Visit | CARDIOLOGY [place] | [address] | fibrillation (HCC) | | | | [address] | [place], [place] | (Primary Dx); Leg | | | | [address] | [address] | swelling; Cerebral | | | | [place], [place] | | atherosclerosis ; On | | | | [address] | | amiodarone therapy; | | | | [phone] | | Chronic obstructive | | | | | | pulmonary disease, | | | | | | unspecified COPD | | | | | | type (HCC); | | | | | | Dissection of aorta, | | | | | | unspecified portion | | | | | | of aorta (HCC); | | | | | | Ascending aortic | | | | | | aneurysm (HCC); HTN | | | | | | (hypertension), | | | | | | benign; | | | | | | Hyperlipidemia, | | | | | | unspecified | | | | | | hyperlipidemia type | +--------+---------+ + + + Social History [...] + + + | Blood Pressure | 124/64 | 05/18/2019 11:11 AM | | | | | PDT | | + + + + + | Pulse | 54 | 05/18/2019 11:11 AM | | | | | PDT | | + + + + + | Temperature | - | - | | + + + + + | Respiratory Rate | - | - | | + + + + + | Oxygen Saturation | 83% | 05/18/2019 11:11 AM | | | | | PDT | | + + + + + | Inhaled Oxygen | - | - | | | Concentration | | | | + + + + + | Weight | 73 kg (161 lb) | 05/18/2019 11:11 AM | | | | | PDT | | + + + + + | Height | 172.7 cm (5' 8") | 05/18/2019 11:11 AM | | | | | PDT | | + + + + + | Body Mass Index | 24.48 | 05/18/2019 11:11 AM | | | | | PDT | | + + + + + documented in this encounter Progress Notes Shoshana Ortega DO - 05/18/2019 10:[address] [facility] Cardiology Cardiology Consult Note Reason for Consultation: afib Requesting Physician: Dr. 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 Sternal MSSA infection Right MCA stroke in 2015 Noncardiac problem list Hypothyroidism COPD Osteoporosis The [...] amiodarone. She followed up with cardiology in [place]. She was previously on anticoagulation, however, she [...] due to balance issues. She sees a molder helper in [place], but is interested in transferring her care to pulmonology in [place]. She denies any recent episodes of palpitations [...] heart rate of 54 beats per minute. Review of Systems Constitutional: positive for fatigue. [...] Angina pectoris (HCC) Arrhythmia Atrial fibrillation (HCC) Stroke (HCC) Past Surgical History: Procedure Laterality Date APPENDECTOMY CARDIAC CATHERIZATION SECTION X 2 CHOLECYCTOSTOMY CORONARY ARTERY BYPASS GRAFT HYSTERECTOMY left atrial appendage closure device surgery STENT PLACEMENT ADDITIONAL VESS sternum surgery TONSILLECTOMY TRACHEAL SURGERY MEDICATIONS Home Medications Outpatient Encounter Medications as of 05/18/2019 Medication Sig Dispense Refill Acetaminophen (TYLENOL 8 [...] facility-administered encounter medications on file as of 05/18/2019. Allergies Allergies Allergen Reactions Percocet [Oxycodone] Other (See Comments) "MADE HER CRAZY!' FAMILY HISTORY Family History Problem Relation Age of Onset Heart disease Mother Stroke Father SOCIAL HISTORY Social History Socioeconomic History Marital status: Spouse name: Not on file Number of children: Not on file Years of education: Not on file Highest education level: Not on file Social Needs Financial resource strain: Not on file Food insecurity - worry: Not on file Food insecurity - inability: Not on file Transportation needs - medical: Not on file Transportation needs - non-medical: Not on file Occupational History Not on file Tobacco Use Smoking status: Former Smoker Smokeless tobacco: Never Used Substance and Sexual Activity Alcohol use: Yes Drug use: Never Sexual activity: Not on file Other Topics Concern Not on file Social History Narrative Not on file PHYSICAL EXAM Vital Signs: BP 124/64 | Pulse 54 | Ht 1.727 m (5' 8") | Wt 73 kg (161 lb) | SpO2 (!) 8 3% | BMI 24.48 kg/m Physical Exam GENERAL: Well developed, well nourished, [...] 146, total bilirubin 1.5, hemoglobin A1c 6.4. EK05/19/19 ordered and reviewed by myself. Sinus bradycardia 50BPM, non specific t wave a bnormality Last Echo: VINCENT 11/16/17 Conclusions 1. The [...] 2014 Impression: 1.Large-caliber right coronary artery with etea-qa-ldltwvkt eccentric stenosis in its proximal portion. 2.Mild stenosis in the mid portion of the left circumflex artery. 3.No significant disease in the remainder of the coronary tree. 4.Left ventricular end-diastolic pressure is modestly elevated at 20 mmHg. 5.Normal left ventricular size and function. Carotid US: AAA screening: Lower extremity US: OTHERS: ASSESSMENT & PLAN 1 Paroxysmal atrial fibrillation 2. History of watchman left atrial closure device 3. Hypertension 4. Hyperlipidemia 5. 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 6. Sternal MSSA infection 7. Right MCA stroke in 2015 8. Hypothyroidism 9. Severe COPD - The patient is a 79 yo female with the above past medical history who presents to the car diology office to establish care. She has been rhythm controlled with amiodarone since 2015 though she has severe COPD. She is currently not on anticoagulation due to history of Watchm an device placement. Recently, she has been doing well from a cardiac standpoint. She is not ed to have unilateral LE edema on physical exam today. - obtain a LLE venous US - Continue ASA 81mg, atorvastatin 40mg daily - Continue amiodarone 200mg po daily - Continue lasix 20mg po bid - Will obtain a 2 week event monitor - obtain a CXR - obtain blood work including TSH, CMP, lipid panel, CBC - she would like to establish with pulmonology in [place], will place referral - Follow up in 3 months Thank you for allowing me to participate in the care of this patient. Primary Care Physician: DO Shoshana Larios DO 05/18/2019 documented in this enco unter Plan of Treatment +--------+---------+ + + + | Date | Type | Specialty | Care Team | Description | +--------+---------+ + + + | 02/07/ | Office | Cardiology | Shoshana Ortega DO | | | 2019 | Visit | | [address] | | | | | | [place] | | | | | | [address] | | | | | | | | +--------+---------+ + + + | 03/05/ | Office | Pulmonology | Ronan Rosas MD | | | 2019 | Visit | | [address] | | | | | | [place] | | | | | | [address] | | | | | | | | +--------+---------+ + + + + +---------+--------+ + + | Name | Type | Priori | Associated Diagnoses | Order Schedule | | | | ty | | | + +---------+--------+ + + | VAS Lower Extremity | Imaging | Routin | Leg swelling | Expected: | | Venous Left | | e | | 05/18/2019, Expires: | | | | | | 05/18/2020 | + +---------+--------+ + + | Event monitor - 2 | ECG | Routin | Persistent atrial | Expected: | | week | | e | fibrillation (HCC) | 05/25/2019, Expires: | | | | | | 05/18/2020 | + +---------+--------+ + + | Comprehensive | Lab | Routin | Persistent atrial | 1 Occurrences | | Metabolic Panel | | e | fibrillation (HCC) | starting 05/18/2019 | | | | | | until 05/18/2020 | + +---------+--------+ + + | TSH, Reflex Free T4 | Lab | Routin | Persistent atrial | 1 Occurrences | | | | e | fibrillation (HCC) | starting 05/18/2019 | | | | | | until 05/18/2020 | + +---------+--------+ + + | CBC w/ Auto | Lab | Routin | Persistent atrial | 1 Occurrences | | Differential | | e | fibrillation (HCC) | starting 05/18/2019 | | | | | | until 05/18/2020 | + +---------+--------+ + + | Lipid Panel | Lab | Routin | Cerebral | 1 Occurrences | | | | e | atherosclerosis | starting 05/18/2019 | | | | | Persistent atrial | until 05/18/2020 | | | | | fibrillation (HCC) | | + +---------+--------+ + + | XR Chest 1 Vw | Imaging | Routin | On amiodarone | Expected: | | | | e | therapy | 05/18/2019, Expires: | | | | | | 05/18/2020 | + +---------+--------+ + + + + +--------+ + + | Name | Type | Priori | Associated Diagnoses | Order Schedule | | | | ty | | | + + +--------+ + + | Ambulatory Referral | Outpatient | Routin | Chronic | Ordered: 05/18/2019 | | to Katheryn | Referral | e | obstructive | | | Pulmonology | | | pulmonary disease, | | | | | | unspecified COPD | | | | | | type (HCC) | | + + +--------+ + + documented as of this encounter Procedures + +--------+ + + + | Procedure Name | Priori | Date/Time | Associated Diagnosis | Comments | | | ty | | | | + +--------+ + + + | ECG 12 LEAD | Routin | 05/18/2019 | Persistent atrial | Results for this | | | e | 11:17 AM | fibrillation (HCC) | procedure are in the | | | | PDT | | results section. | + +--------+ + + + documented in this encounter Results ECG 12 lead (05/18/2019 11:17 AM PDT) + + + + + + | Component | Value | Ref Range | Performed | Pathologist | | | | | At | Signature | + + + + + + | VENTRICULAR | 50 | BPM | [facility] | | | RATE EKG | | | | | + + + + + + | ATRIAL RATE | 50 | BPM | [facility] | | + + + + + + | P-R | 196 | ms | [facility] | | | INTERVAL | | | | | + + + + + + | QRS | 128 | ms | [facility] | | | DURATION | | | | | + + + + + + | Q-T | 482 | ms | [facility] | | | INTERVAL | | | | | + + + + + + | Q-T | 439 | ms | [facility] | | | INTERVAL | | | | | | (CORRECTED) | | | | | + + + + + + | P WAVE AXIS | 76 | degrees | [facility] | | + + + + + + | QRS AXIS | -90 | degrees | [facility] | | + + + + + + | T AXIS | 94 | degrees | [facility] | | + + + + + + | INTERPRETAT | Please refer to | | [facility] | | | ION TEXT | Providers office visit | | | | | | note for Providers | | | | | | Interpretation.Confirmed | | | | | | by [facility] [place] Read Only, | | | | | | [facility] [place] ([id number]), | | | | | | make up editor Salvatore Huggins | | | | | | ([phone]) on 05/18/2019 | | | | | | 1:08:07 PM | | | | + + [...] Primary Atrial fibrillation | + + | Leg swelling Swelling of limb | + + | Cerebral atherosclerosis Cerebral atherosclerosis | + + | On amiodarone therapy | + + | Chronic obstructive pulmonary disease, unspecified COPD type (HCC) | + + | Dissection of aorta, unspecified portion of aorta (HCC) | + + | Ascending aortic aneurysm (HCC) Thoracic aneurysm without mention of rupture | + + | HTN (hypertension), benign Essential hypertension, benign | + + | Hyperlipidemia, unspecified hyperlipidemia type | + + documented in this encounter
--- OUTSIDE RECORDS SUMMARY | ~2019-10-10 | XMS | Encounter Summary ---
Demographics + + + | Address | [address] | | | [place] [address] | + + + | Home Phone | | + + + | Preferred Language | Unknown | + + + | Marital Status | | + + + | Shinto Affiliation | Unknown | + + + | Race | Unknown | + + + | Ethnic Group | Unknown | + + + Author + + + | Author | [facility] | | | and [place] | + + + | Organization | [facility] | | | [...] Team Providers + +------+ + | Care Barrel Raiser Helper Name | Role | Phone | + [...] + + | 10/04/ | Refill | [facility] | Alejandra Barraza | Medication Refill | | 2020 | | CARDIOLOGY [place], Real Estate Loan Processor | | | | | [address] | | | | | | [place] | | | | | | [address] | | | | | | [phone] | | | +--------+--------+ + + + [...] [place] | | | | | | [address] | | | | | | | | +--------+---------+ + + + | 03/05/ | Office | Pulmonology | Ronan Rosas MD | | | 2019 | Visit | | [address] | | | | | | [place] | | | | | | [address] | | | | | | | | +--------+---------+ + + + documented as of this encounter Visit Diagnoses Not on filedocumented in this encounter"
--- OUTSIDE RECORDS SUMMARY | ~2019-10-10 | XMS | Encounter Summary ---
Demographics + + + | Address | [address] | | | [place] [address] | + + + | Home Phone | | + + + | Preferred Language | Unknown | + + + | Marital Status | | + + + | Hinduism Affiliation | Unknown | + + + | Race | Unknown | + + + | Ethnic Group | Unknown | + + + Author + + + | Author | [facility] | | | and [place] | + + + | Organization | [facility] | | | [...] Team Providers + +------+ + | Care Stenotypist Name | Role | Phone | + +------+ + | Michael Almonte DO | PCP | | + +------+ + Encounter Details +--------+ + + + + | Date | Type | Department | Care Team | Description | +--------+ + + + + | 08/29/ | Documentati | [facility] | Grazyna Espinoza, | | | 2018 | on | PULMONOLOGY [address] | Corporate Attorney | | | | | [address] | | | | | | [place] | | | | | | [address] | | | | | | [phone] | | | +--------+ + + + [...] of this encounter Progress Notes Grazyna Espinoza, Corporate Attorney - 08/29/2019 1:55 PM PST3 step testing Oximetry Exerci se (code) 58339 1. At rest on room air: Time:1:40 [...] [place] | | | | | | [id number] | | | | | | | | +--------+---------+ + + + | 03/05/ | Office | Pulmonology | Ronan Rosas MD | | | 2019 | Visit | | [address] | | | | | | [place] | | | | | | [address] | | | | | | | | +--------+---------+ + + + documented as of this encounter Visit Diagnoses Not on filedocumented in this encounter"
--- OUTSIDE RECORDS SUMMARY | ~2019-10-10 | XMS | Encounter Summary ---
Demographics + + + | Address | [address] | | | [place] [address] | + + + | Home Phone | | + + + | Preferred Language | Unknown | + + + | Marital Status | | + + + | Christian Affiliation | Unknown | + + + | Race | Unknown | + + + | Ethnic Group | Unknown | + + + Author + + + | Author | [facility] | | | and [place] | + + + | Organization | [facility] | | [...] Team Providers + +------+ + | Care Tibco Developer Name | Role | Phone | + [...] | | disease, | [address] | [place], [place] | | | | | unspecified | [place], [place] | [address] | | | | | COPD type | [address] | Phone: | | | | | ([facility]) | Phone: | [phone] | | | | | | [phone] | Fax: | | | | | | Fax: | [phone] | | | | | | [phone] | | + + + + + [...] | | | | Venous Left | [address] | | | | | | | Phone: | | | | | | | [phone] | | | | | | | Fax: | | | | | | | [phone] | | +--------+--------+ + + + + [...] MO F | | | | | ([facility]), | [address] | [place], [place] | | | | | Presence of | [place], | [address] Phone: | | | | | other | [place] | [phone] | | | | | cardiac | [address] | Fax: | | | | | implants and | Phone: | [phone] | | | | | grafts | [phone] | | | | | | Procedures | Fax: | | | | | | Consult | [phone] | | + +--------+ + + + + Encounter Details +--------+---------+ + + + | Date | Type | Department | Care Team | Description | +--------+---------+ + + + | 05/18/ | Office | [facility] | Shoshana Ortega DO | Persistent atrial | | 2019 | Visit | CARDIOLOGY [place] | [address] | fibrillation (HCC) | | | | [address] | [address] [place], [place] | (Primary Dx); Leg | | | | [address] | [address] | swelling; Cerebral | | | | [place], [place] | | atherosclerosis ; On | | | | [address] | | amiodarone therapy; | | | | [phone] | | Chronic obstructive | | | [...] Ortega DO - 05/18/2019 10:40 AM PDT [facility] Cardiology Cardiology Consult Note Reason for Consultation: [...] amiodarone. She followed up with cardiology in [place]. She was previously on anticoagulation, however, she [...] due to balance issues. She sees a environmental specialist in [place], but is interested in transferring her care to pulmonology in [place]. She denies any recent episodes of palpitations [...] 2014 Impression: 1.Large-caliber right coronary artery with ccdc-mv-pivgzija eccentric stenosis in its proximal portion. 2.Mild [...] would like to establish with pulmonology in [place], will place referral - Follow up in [...] [place] | | | | | | [address] | | | | | | | | +--------+---------+ + + + | 03/05/ | Office | Pulmonology | Ronan Rosas MD | | | 2019 | Visit | | [address] | | | | | | [place] | | | | | | [address] | | | | | | | [...] | | | | | by [facility] [place] Read Only, | | | | | | [facility] [place] ([id number]), | | | | | | electronic news gathering editor Salvatore Huggins | | | | | | ([phone]) on 05/18/2019 | | | | | [...]
--- OUTSIDE RECORDS SUMMARY | ~2019-10-10 | XMS | Encounter Summary ---
Demographics + + + | Address | [address] | | | [place] [address] | + + + | Home Phone | | + + + | Preferred Language | Unknown | + + + | Marital Status | | + + + | Rastafarian Affiliation | Unknown | + + + | Race | Unknown | + + + | Ethnic Group | Unknown | + + + Author + + + | Author | [facility] | | | and [place] | + + + | Organization | [facility] | | | [...] Team Providers + +------+ + | Care Trencher Driver Name | Role | Phone | + +------+ + | Michael Almonte DO | PCP | | + +------+ + Reason for Visit +--------+ + | Reason | Comments | +--------+ + | Other | [facility] labs 05/25/19 | +--------+ + Encounter Details +--------+ + + + + | Date | Type | Department | Care Team | Description | +--------+ + + + + | 05/26/ | Documentati | [facility] | Luisa Mckeon, | Other ([facility] | | 2019 | on | CARDIOLOGY [place] | BALL SHAGGER | labs 05/25/19) | | | | [address] | | | | | | [place], [place] | | | | | | [address] | | | | | | [phone] | | | +--------+ + + + [...] [place] | | | | | | [address] | | | | | | | | +--------+---------+ + + + | 03/05/ | Office | Pulmonology | Ronan Rosas MD | | | 2019 | Visit | | [address] | | | | | | [place] | | | | | | [address] | | | | | | | | +--------+---------+ + + + documented as of this encounter Visit Diagnoses Not on filedocumented in this encounter"
--- OUTSIDE RECORDS SUMMARY | ~2019-10-10 | XMS | Encounter Summary ---
Demographics + + + | Address | [address] | | | [place] [address] | + + + | Home Phone [...] + + | Author | [facility] | | | and [place] | + + + | Organization | [facility] | | | [...] Team Providers + +------+ + | Care Guard Dance Hall Name | Role | Phone | + +------+ + | Michael Almonte DO | PCP | | + +------+ + Reason for Visit +--------+ + | Reason | Comments | +--------+ + | Other | [facility] Cardiac Care - 2014 notes | +--------+ + Encounter Details +--------+ + + + + | Date | Type | Department | Care Team | Description | +--------+ + + + + | 05/18/ | Documentati | [facility] | Alejadnra Barraza | [facility] | | 2019 | on | CARDIOLOGY [place] [employer] | Cardiac Care - 2014 | | | | [address] | | notes ) | | | | [address] | | | | | | [place] | | | | | | [address] | | | | | | [phone] | | | +--------+ + + + [...] [place] | | | | | | [address] | | | | | | | | +--------+---------+ + + + | 03/05/ | Office | Pulmonology | Ronan Roass MD | | | 2019 | Visit | | [address] | | | | | | [place] | | | | | | [address] | | | | | | | | +--------+---------+ + + + documented as of this encounter Visit Diagnoses Not on filedocumented in this encounter"
--- OUTSIDE RECORDS SUMMARY | ~2019-10-10 | XMS | Encounter Summary ---
Demographics + + + | Address | [address] | | | [place] [address] | + + + | Home Phone | | + + + | Preferred Language | Unknown | + + + | Marital Status | | + + + | Judaism Affiliation | Unknown | + + + | Race | Unknown | + + + | Ethnic Group | Unknown | + + + Author + + + | Author | [facility] | | | and [place] | + + + | Organization | [facility] | | [...] Team Providers + +------+ + | Care Deputy Director Name | Role | Phone | + +------+ + | Michael Almonte DO | PCP | | + +------+ + Reason for Visit +--------+ + | Reason | Comments | +--------+ + | Other | [facility] labs 05/25/19 | +--------+ + Encounter Details +--------+ + + + + | Date | Type | Department | Care Team | Description | +--------+ + + + + | 05/26/ | Documentati | [facility] | Luisa Mckeon, | Other ([facility] | | 2019 | on | CARDIOLOGY READING | [address] | labs 05/25/19) | | | | [address] | | | | | | [place], [place] | | | | | | [address] | | | | | | [phone] | | | +--------+ + + + [...] [place] | | | | | | [address] | | | | | | | | +--------+---------+ + + + | 03/05/ | Office | Pulmonology | Ronan Rosas MD | | | 2019 | Visit | | [address] | | | | | | [place] | | | | | | [address] | | | | | | | | +--------+---------+ + + + documented as of this encounter Visit Diagnoses Not on filedocumented in this encounter"
--- OUTSIDE RECORDS SUMMARY | ~2019-10-10 | XMS | Encounter Summary ---
Demographics + + + | Address | [address] | | | [place] [address] | + + + | Home Phone | | + + + | Preferred Language | Unknown | + + + | Marital Status | | + + + | Mandaeism Affiliation | Unknown | + + + | Race | Unknown | + + + | Ethnic Group | Unknown | + + + Author + + + | Author | [facility] | | | and [place] | + + + | Organization | [facility] | | | [...] Team Providers + +------+ + | Care Hammer Runner Name | Role | Phone | + +------+ + | Michael Almonte DO | PCP | | + +------+ + Reason for Visit +--------+ + | Reason | Comments | +--------+ + | Other | [facility] Cardiac Care - 2014 notes | +--------+ + Encounter Details +--------+ + + + + | Date | Type | Department | Care Team | Description | +--------+ + + + + | 05/18/ | Documentati | [facility] | Alejandra Barraza | Caity ([facility] | | 2019 | on | CARDIOLOGY [place] Internal Controls Specialist | Cardiac Care - 2014 | | | | [address] | | notes ) | | | | [address] | | | | | | [place] | | | | | | [address] | | | | | | [phone] | | | +--------+ + + + [...] [place] | | | | | | [address] | | | | | | | | +--------+---------+ + + + | 03/05/ | Office | Pulmonology | Ronan Rosas MD | | | 2019 | Visit | | [address] | | | | | | [place] | | | | | | [address] | | | | | | | | +--------+---------+ + + + documented as of this encounter Visit Diagnoses Not on filedocumented in this encounter"
--- OUTSIDE RECORDS SUMMARY | ~2019-10-10 | XMS | Clinical Summary ---
Demographics + + + | Address | [address] | | | [place] [address] | + + + | Home Phone | | + + + | Preferred Language | Unknown | + + + | Marital Status | | + + + | Mandaen Affiliation | Unknown | + + + | Race | Unknown | + + + | Ethnic Group | Unknown | + + + Author + + + | Author | [facility] | | | and [place] | + + + | Organization | [facility] | | | and [...] Team Providers + +------+ + | Care Ironing Pleater Name | Role | Phone | + [...] | | 2020 | | | Jacobo Cargo Surveyor | | +--------+ + + + + [...] | | 2019 | on | | Cargo Surveyor | | +--------+ + + + + [...] | | | | | | classification ([facility]) | +--------+ + + + + from [...] [place] | | | | | | [address] | | | | | | | | +--------+---------+ + + + | 03/05/ | Office | Pulmonology | Ronan Rosas MD | | | 2020 | Visit | | [address] | | | | | | [place] | | | | | | [address] | | | | | | | [...] | | | | | by [facility] [place] Read Only, | | | | | | [employer] [place] (502), | | | | | | editorial assistant Salvatore Huggins | | | | | | (251) on 08/10/2019 | | | | | [...] +--------+ +---------+--------+ | MEDICARE | MEDICA | [id number] | 01/26/20 | [phone] | | Medica | | | RE | | 06-Pre | 5 | | re | | | PART A | | sent | | | | | | AND B | | | | | | + +--------+ +--------+ +---------+--------+ | BCBS | BCBS | [id number] | 09/27/19 | | | Indemn | [...] | | al/Fam | | 1940 | [phone] | [place] | | | [place] | | | 7 (Home) | [address] | + +--------+ +--------+ + + Advance Directives + + + + + | Type | Date Recorded | Patient | Explanation | | | | Supervisor Sign Shop | | + + + + + | Power of | | | | | Qa Test Lead | | | | + + + + + | Advance | | | | | Directive | | | | + + + + +
--- OUTSIDE RECORDS SUMMARY | ~2019-10-10 | XMS | Encounter Summary ---
Demographics + + + | Address | [address] | | | [place] [address] | + + + | Home Phone | | + + + | Preferred Language | Unknown | + + + | Marital Status | | + + + | Mormonism Affiliation | Unknown | + + + | Race | Unknown | + + + | Ethnic Group | Unknown | + + + Author + + + | Author | [facility] | | | and [place] | + + + | Organization | [facility] | | | [...] Team Providers + +------+ + | Care Inspector Filters Name | Role | Phone | + [...] + + | 05/25/ | Documentati | [facility] | Daniela Allen, | Other (end of study) | | 2019 | on | CARDIOLOGY [place] | Technologist | | | | | [address] | | | | | | [place] | | | | | | [address] | | | | | | [phone] | | | +--------+ + + + [...] Technologist - 05/25/2019 11:59 PM PDT Cardiac Harp Action Assembler Date of Event Monitor: 05/25/19 Referring Physician: [...] burden of 0.36% supraventricular ectopic beats. Also, 12698 PVCs were recorded; this represents 5 .58% [...] | | | | | [place] | | | | | | [address] | | | | | | | | +--------+---------+ + + + | 03/05/ | Office | Pulmonology | Ronan Rosas MD | | | 2019 | Visit | | [address] | | | | | | [place] | | | | | | [address] | | | | | | | | +--------+---------+ + + + documented as of this encounter Visit Diagnoses + + | Diagnosis | + + | Persistent atrial fibrillation Atrial fibrillation | + + documented in this encounter"
--- OUTSIDE RECORDS SUMMARY | ~2019-10-10 | XMS | Encounter Summary ---
Demographics + + + | Address | [address] | | | [place] [address] | + + + | Home Phone | | + + + | Preferred Language | Unknown | + + + | Marital Status | | + + + | Buddhist Affiliation | Unknown | + + + | Race | Unknown | + + + | Ethnic Group | Unknown | + + + Author + + + | Author | [facility] | | | and [place] | + + + | Organization | [facility] | | | [...] Team Providers + +------+ + | Care Bailing Machine Operator Name | Role | Phone | [...] + + | 05/25/ | Documentati | [facility] | Daniela Allen, | Other (end of study) | | 2019 | on | CARDIOLOGY [place] | Technologist | | | | | [address] | | | | | | [place] | | | | | | [address] | | | | | | [phone] | | | +--------+ + + + [...] Technologist - 05/25/2019 11:59 PM PDT Cardiac Clearing Inspector Date of Event Monitor: 05/25/19 Referring Physician: [...] burden of 0.36% supraventricular ectopic beats. Also, [id number] PVCs were recorded; this represents 5 .58% [...] | | | | | [place] | | | | | | [address] | | | | | | | | +--------+---------+ + + + | 03/05/ | Office | Pulmonology | Ronan Rosas MD | | | 2019 | Visit | | [address] | | | | | | [place] | | | | | | [address] | | | | | | | | +--------+---------+ + + + documented as of this encounter Visit Diagnoses + + | Diagnosis | + + | Persistent atrial fibrillation Atrial fibrillation | + + documented in this encounter"
--- OUTSIDE RECORDS SUMMARY | ~2019-10-10 | XMS | Encounter Summary ---
Demographics + + + | Address | [address] | | | [place] [address] | + + + | Home Phone | | + + + | Preferred Language | Unknown | + + + | Marital Status | | + + + | Samaritan Affiliation | Unknown | + + + [...] Team Providers + +------+ + | Care Nursing Informatics Clinical Analyst Name | Role | Phone | + [...] + + | 05/25/ | Clinical | [facility] | Shoshana Ortega DO | Persistent atrial | | 2019 | Support | CARDIOLOGY [place] | [address] | fibrillation (HCC) | | | | [address] | [place] | | | | | [address] | [address] | | | | | [place] | | | | | | [address] | Oskar Quiles, | | | | | [phone] | MD [address] | | | | | | [place] | | | | | | [address] | | | | | | | [...] of this encounter Progress Notes Alejandra Barraza, Rehabilitation Construction Specialist - 05/25/2019 1:45 PM PDTCardiac Event Monitor placed on patient. EOB/Billing information discussed. Instructions given and understood. Patient instructed to call [employer] for any billing or monitor questions. JDW:BLADE CHANGER-AAMA. [facility] umented in this encounter Plan of Treatment +--------+---------+ + + + | Date | Type | Specialty | Care Team | Description | +--------+---------+ + + + | 02/07/ | Office | Cardiology | Shoshana Ortega DO | | | 2019 | Visit | | [address] | | | | | | [place] | | | | | | [id number] | | | | | | | | +--------+---------+ + + + | 03/05/ | Office | Pulmonology | Ronan Rosas MD | | | 2019 | Visit | | [address] | | | | | | [place] | | | | | | [id number] | | | | | | | | +--------+---------+ + + + documented as of this encounter Visit Diagnoses + + | Diagnosis | + + | Persistent atrial fibrillation Atrial fibrillation | + + documented in this encounter"
--- OUTSIDE RECORDS SUMMARY | ~2019-10-10 | XMS | Encounter Summary ---
Demographics + + + | Address | [address] | | | [place] [address] | + + + | Home Phone | | + + + | Preferred Language | Unknown | + + + | Marital Status | | + + + | Episcopalian Affiliation | Unknown | + + + | Race | Unknown | + + + | Ethnic Group | Unknown | + + + Author + + + | Author | [facility] | | | and [place] | + + + | Organization | [facility] | | | [...] Team Providers + +------+ + | Care Sprinkler Helper Name | Role | Phone | + +------+ + | Michael Almonte DO | PCP | | + +------+ + Encounter Details +--------+ + + + + | Date | Type | Department | Care Team | Description | +--------+ + + + + | 08/29/ | Documentati | [facility] | Grazyna Espinoza, | | | 2018 | on | PULMONOLOGY [address] | Dental Laboratory Manager | | | | | [address] | | | | | | [place] | | | | | | [address] | | | | | | [phone] | | | +--------+ + + + [...] of this encounter Progress Notes Grazyna Espinoza, Dental Laboratory Manager - 08/29/2019 1:55 PM PST3 step testing Oximetry Exerci se (code) 59531 1. At rest on room air: Time:1:40 [...] [place] | | | | | | [id number] | | | | | | | | +--------+---------+ + + + | 03/05/ | Office | Pulmonology | Ronan Rosas MD | | | 2019 | Visit | | [address] | | | | | | [place] | | | | | | [address] | | | | | | | | +--------+---------+ + + + documented as of this encounter Visit Diagnoses Not on filedocumented in this encounter"
[~2019-10-10 10:45] MED LIST: ADVAIR 250-501 EACH INH; AMIODARONE HCL200 MG PO; ASPIR 8181 MG PO; ASPIRIN EC325 MG PO; ATORVASTATIN CA40 MG PO; CALCIUM 600 +1 EACH PO; CULTURELLE1 EACH PO; IMODIUM A-1 MG/7.5 M PO; IMODIUM MULTI-1 EACH PO; IPRAT-ALBUT 0.5-3 ML INH; KEFLEX500 MG PO; LEVOTHYROXINE50 MCG PO; LISINOPRIL40 MG PO; LOSARTAN POTASS50 MG PO; METOPROLOL SUCC50 MG PO; NITROSTAT0.4 MG SL; PRILOSEC20 MG PO; PROAIR HFA8.5 GM INH; SPIRIVA18 MCG INH; VENLAFAXINE HCL75 M1 PO; VENLAFAXINE HCL75 MG PO; VITAMIN D32000 UNIT PO; WARFARIN SODIU2.5 MG PO; WARFARIN SODIUM5 MG PO; ZESTRIL40 MG PO
[2019-10-10] MEDS ORDERED: NORCO 5-325 TA1 EACH PO (14:12)
== END 2019-10-10 14:55 | disposition home or self-care (01) ==
LOC: ED 10:45
DX: L02.416 Cutaneous abscess of left lower limb (principal); I10 Essential (primary) hypertension; J44.9 Chronic obstructive pulmonary disease, unspecified; K21.9 Gastro-esophageal reflux disease without esophagitis; Z87.891 Personal history of nicotine dependence; E78.00 Pure hypercholesterolemia, unspecified; Z88.5 Allergy status to narcotic agent; Z79.899 Other long term (current) drug therapy; Z79.51 Long term (current) use of inhaled steroids; Z79.82 Long term (current) use of aspirin
CPT/HCPCS: 74176; 93971; 99283-25

== ENCOUNTER 2019-10-11 03:20 | Emergency (ER) | payer MEDICARE, BC ==
[~2019-10-11] VITALS: Ht 172.7 cm; Wt 74.8 kg
--- OUTSIDE RECORDS SUMMARY | ~2019-10-11 | XMS | Encounter Summary ---
Demographics + + + | Address | [address] | | | [place] [address] | + + + | Home Phone | | + + + | Preferred Language | Unknown | + + + | Marital Status | | + + + | Mormonism Affiliation | Unknown | + + + | Race | Unknown | + + + | Ethnic Group | Unknown | + + + Author + + + | Author | [facility] | | | and [place] | + + + | Organization | [facility] | | | and [place] | + + + | Address | Unknown | + + + | Phone | Unavailable | + + + Support + + +---------+ + | Name | Relationship | Address | Phone | + + +---------+ + | Katerina Dada | ECON | Unknown | | + + +---------+ + | Benjamín Garland | ECON | Unknown | | + + +---------+ + | Tiago Garland | ECON | Unknown | | + + +---------+ + Care Team Providers + +------+ + | Care Asset Coordinator Name | Role | Phone | + +------+ + | Michael Almonte DO | PCP | | + +------+ + Reason for Visit + + + | Reason | Comments | + + + | Medication Refill | | + + + Encounter Details +--------+--------+ + + + | Date | Type | Department | Care Team | Description | +--------+--------+ + + + | 10/04/ | Refill | [facility] | Alejandra Barraza | Medication Refill | | 2020 | | CARDIOLOGY [place], Circulation Assistant | | | | | [address] | | | | | | [place] | | | | | | [address] | | | | | | [phone] | | | +--------+--------+ + + + Social History + +-------+ +--------+ + | Tobacco Use | Types | Packs/Day | Years | Date | | | | | Used | | + +-------+ +--------+ + | Former Smoker | | 0.5 | 50 | Quit: 2013 | + +-------+ +--------+ + + +---+---+---+ | Smokeless Tobacco: | | | | | Never Used | | | | + +---+---+---+ + + +---------+ + | Alcohol Use | Drinks/Week | oz/Week | Comments | + + +---------+ + | Yes | | | | + + +---------+ + + + + | Sex Assigned at | Date Recorded | | | | + + + | Not on file | | + + + + + + + | Job Start Date | Occupation | Industry | + + + + | Not on file | Not on file | Not on file | + + + + + + + + | Travel History | Travel Start | Travel End | + + + + + + | No recent travel history available. | + + documented as of this encounter Plan of Treatment +--------+---------+ + + + | Date | Type | Specialty | Care Team | Description | +--------+---------+ + + + | 02/07/ | Office | Cardiology | Shoshana Ortega DO | | | 2019 | Visit | | [address] | | | | | | [place] | | | | | | [address] | | | | | | | | +--------+---------+ + + + | 03/05/ | Office | Pulmonology | Ronan Rosas MD | | | 2019 | Visit | | [address] | | | | | | [place] | | | | | | [address] | | | | | | | | +--------+---------+ + + + documented as of this encounter Visit Diagnoses Not on filedocumented in this encounter"
--- OUTSIDE RECORDS SUMMARY | ~2019-10-11 | XMS | Clinical Summary ---
Demographics + + + | Address | [address] | | | [place] [address] | + + + | Home Phone | | + + + | Preferred Language | Unknown | + + + | Marital Status | | + + + | Sabianist Affiliation | Unknown | + + + | Race | Unknown | + + + | Ethnic Group | Unknown | + + + Author + + + | Author | [facility] | | | and [place] | + + + | Organization | [facility] | | | and [...] Team Providers + +------+ + | Care Cotton Factor Name | Role | Phone | + +------+ + | Michael Almonte DO | PCP | | + +------+ + Allergies + + + + + + | Active Allergy | Reactions | Severity | Noted | Comments | | | | | Date | | + + + + + + | Oxycodone | Other (See Comments) | Medium | 05/18/20 | "AIDA HER YANGRACHEL!' | | | | | 19 | | + + + + + + Medications + + + +---------+------+------+-------+ | Medication | Sig | Dispensed | Refills | Star | End | Statu | | | | | | t | Date | s | | | | | | Date | | | + + + +---------+------+------+-------+ | levothyroxine | Take 100 mcg by | | 0 | | | Activ | | (SYNTHROID) 100 mcg | mouth every morning | | | | | e | | tablet | (before breakfast). | | | | | | + + + +---------+------+------+-------+ | cephalexin | Take 500 mg by mouth | | 0 | | | Activ | | (KEFLEX) 500 mg | 4 times daily. | | | | | e | | capsule | | | | | | | + + + +---------+------+------+-------+ | furosemide (LASIX) | Take 20 mg by mouth | | 0 | | | Activ | | 20 mg tablet | 2 times daily. | | | | | e | + + + +---------+------+------+-------+ | venlafaxine | Take 75 mg by mouth | | 0 | | | Activ | | (EFFEXOR) 75 MG | 3 times daily. | | | | | e | | tablet | | | | | | | + + + +---------+------+------+-------+ | potassium chloride | Take 8 mEq by mouth | | 0 | | | Activ | | (KLOR-CON) 20 MEQ | 2 times daily. | | | | | e | | packet | | | | | | | + + + +---------+------+------+-------+ | atorvaSTATin | Take 40 mg by mouth | | 0 | | | Activ | | (LIPITOR) 40 mg | nightly. | | | | | e | | tablet | | | | | | | + + + +---------+------+------+-------+ | tiotropium | Inhale 18 mcg into | | 0 | | | Activ | | (SPIRIVA HANDIHALER) | the lungs Daily. | | | | | e | | 18 mcg inhalation | | | | | | | | capsule | | | | | | | + + + +---------+------+------+-------+ | cholecalciferol | Take 2,000 Units by | | 0 | | | Activ | | (VITAMIN D-3) 2000 | mouth Daily. | | | | | e | | units TABS | | | | | | | + + + +---------+------+------+-------+ | melatonin 3 mg | Take by mouth | | 0 | | | Activ | | TABS | nightly as needed. | | | | | e | + + + +---------+------+------+-------+ | aspirin 81 MG | Take 81 mg by mouth | | 0 | | | Activ | | tablet | Daily. | | | | | e | + + + +---------+------+------+-------+ | Acetaminophen | Take by mouth. | | 0 | | | Activ | | (TYLENOL 8 HOUR PO) | | | | | | e | + + + +---------+------+------+-------+ | FLUTICASONE | by Nasal route. | | 0 | | | Activ | | PROPIONATE, NASAL, | | | | | | e | | NA | | | | | | | + + + +---------+------+------+-------+ | UNABLE TO FIND | Med Name: Albuterol | | 0 | | | Activ | | | Ventolin inhaler | | | | | e | + + + +---------+------+------+-------+ | Nitroglycerin | Place under the | | 0 | | | Activ | | (NITROSTAT SL) | tongue. | | | | | e | + + + +---------+------+------+-------+ | amiodarone | Take 1 tablet by | 31 | 5 | 01/0 | | Activ | | (PACERONE) 200 mg | mouth Daily. | tablet | | 9/20 | | e | | tablet | | | | 20 | | | + + + +---------+------+------+-------+ | amiodarone | Take 200 mg by mouth | | 0 | | 01/0 | Disco | | (PACERONE) 200 mg | Daily. | | | | 05/16 | ntinu | | tablet | | | | | 20 | ed | | | | | | | | (Reor | | | | | | | | luis) | + + + +---------+------+------+-------+ Active Problems + + + | Problem | Noted Date | + + + | Edema of lower extremity | 12/29/2016 | + + + | Sleep apnea in adult | 11/04/2016 | + + + | Oxygen dependent | 04/01/2016 | + + + | At risk for falls | 10/15/2015 | + + + | DM2 (diabetes mellitus, type 2) | 10/11/2015 | + + + | HLD (hyperlipidemia) | 10/11/2015 | + + + | Persistent atrial fibrillation | 10/11/2015 | + + + | Hypothyroidism | 05/21/2015 | + + + | Ascending aortic aneurysm | 03/19/2015 | + + + | Aortic dissection | 03/18/2015 | + + + + + | Overview: Patient admitted with ascending aortic aneurysm | | with descending intramural hematoma. Underwent replacement of | | ascending aorta and aortic arch with a graft by CT surgery on | | 03/26. Underwent creation of left common iliac conduit for | | thoracic aortic dissection with penetrating ulcer by vascular | | surgery on 04/12. | + + + + + | Depression | 03/18/2015 | + + + | HTN (hypertension), benign | 03/18/2015 | + + + + + | Overview: 05/2015 VINCENT, EF 55-60% | + + + + + | Stage 4 very severe COPD by GOLD classification | 03/18/2015 | + + + + + | Overview: Patient's surgery complicated by underlying COPD | | (GOLD 3). Preop evaluation done by pulm. Required a defatting | | tracheostomy by OMFS. Currently has a #6 trach. | + + Encounters +--------+ + + + + | Date | Type | Specialty | Care Team | Description | +--------+ + + + + | 10/04/ | Refill | Cardiology | Alejandra Barraza | Medication Refill | | 2020 | | | [place] Home Day Care Provider | | +--------+ + + + + | 08/29/ | Office | Pulmonology | Ronan Rosas MD | Oxygen dependent | | 2019 | Visit | | | (Primary Dx); Stage | | | | | | 4 very severe COPD | | | | | | by GOLD | | | | | | classification (HCC) | +--------+ + + + + | 08/29/ | Documentati | Pulmonology | Grazyna Espinoza, | | | 2019 | on | | Home Day Care Provider | | +--------+ + + + + | 08/10/ | Office | Cardiology | Shoshana Ortega DO | Persistent atrial | | 2019 | Visit | | | fibrillation | | | | | | (Primary Dx); On | | | | | | amiodarone therapy; | | | | | | Dissection of aorta, | | | | | | unspecified portion | | | | | | of aorta (HCC); HTN | [...] | | | | | | classification ([facility]) | +--------+ + + + + from Last 3 Months Family History + + +------+ + | Medical History | Relation | Name | Comments | + + +------+ + | Stroke | Father | | | + + +------+ + | Heart disease | Mother | | | + + +------+ + + +------+ + + | Relation | Name | Status | Comments | + +------+ + + | Father | | | | + +------+ + + | Mother | | | | + +------+ + + Social History + +-------+ +--------+ [...] recent travel history available. | + + Last Filed Vital Signs + + + + + | Vital Sign | Reading | Time Taken | Comments | + + + + + | Blood Pressure | 121/64 | 08/29/2019 1:23 PM | | | | | PST | | + + + + + | Pulse | 109 | 08/29/2019 1:23 PM | | | | | PST | | + + + + + | Temperature | - | - | | + + + + + | Respiratory Rate | - | - | | + + + + + | Oxygen Saturation | 89% | 08/29/2019 1:23 PM | 5 LPM | | | | PST | | + + + + + | Inhaled Oxygen | - | - | | | Concentration | | | | + + + + + | Weight | 75.8 kg (167 lb) | 08/29/2019 1:23 PM | | | | | PST | | + + + + + | Height | 172.7 cm (5' 8") | 08/29/2019 1:23 PM | Per pt | | | | PST | | + + + + + | Body Mass Index | 25.39 | 08/29/2019 1:23 PM | | | | | PST | | + + + + + Plan of Treatment +--------+---------+ + + + | Date | Type | Specialty | Care Team | Description | +--------+---------+ + + + | 02/07/ | Office | Cardiology | Shoshana Ortega DO | | | 2020 | Visit | | [address] | | | | | | [place] | | | | | | [address] | | | | | | | | +--------+---------+ + + + | 03/05/ | Office | Pulmonology | Ronan Rosas MD | | | 2020 | Visit | | [address] | | | | | | [place] | | | | | | [address] | | | | | | | | +--------+---------+ + + + + + + + + | Health Maintenance | Due Date | Last Done | Comments | + + + + + | Vaccine: | | | | | Dtap/Tdap/Td (1 - | 2 | | | | Tdap) | | | | + + + + + | Diabetic Eye Exam | | | | | | 9 | | | + + + + + | Diabetic Foot Exam | | | | | | 9 | | | + + + + + | Hemoglobin A1c | | | | | Screening | 9 | | | + + + + + | Vaccine: Zoster (1 | | | | | of 2) | 1 | | | + + + + + | Breast Cancer | | | | | Screening | 6 | | | + + + + + | Vaccine: | | | | | Pneumococcal 65+ (1 | 6 | | | | of 2 - PCV13) | | | | + + + + + | Adult Annual | | | | | Wellness Visit | 9 | | | + + + + + | Microalbumin | | | | | Screening | 9 | | | + + + + + | Vaccine: Influenza | | | | | (#1) | 9 | | | + + + + + Procedures + +--------+ + + + | [...] section. | + +--------+ + + + | IMAGING REPORT - | | 08/03/2019 | | Results for this | | EXTERNAL SCAN | | 12:00 AM | | procedure are in the | | | | PST | | results section. | + +--------+ + + + | IMAGING REPORT - | | 08/03/2019 | | Results for this | | EXTERNAL SCAN | | 12:00 AM | | procedure are in the | | | | PST | | results section. | + +--------+ + + + from Last 3 Months Results ECG 12 lead (08/10/2019 1:47 PM [...] | | | | | by [facility] [place] Read Only, | | | | | | [employer] [place] ([id number]), | | | | | | editorial writer Salvatore Huggins | | | | | | (013) on 08/10/2019 | | | | | [...] | | + +---------+ + + | DEVORAH MIMS | | | | + +---------+ + + IMAGING REPORT - EXTERNAL SCAN (08/03/2019 12:00 AM PST)Only the most recent of 2 results w danielin the time period is included. + + + | Narrative | Performed At | + + + | Ordered by an | | | unspecified provider. | | + + + from Last 3 Months Insurance + +--------+ +--------+ +---------+--------+ | Payer | Benefi | Subscriber | Effect | Phone | Address | Type | | | t Plan | ID | lizeth | | | | | | / | | Dates | | | | | | Group | | | | | | + +--------+ +--------+ +---------+--------+ | MEDICARE | MEDICA | [id number] | 01/26/20 | [phone] | | Medica | | | RE | | 06-Pre | 5 | | re | | | PART A | | sent | | | | | | AND B | | | | | | + +--------+ +--------+ +---------+--------+ | BCBS | BCBS | [id number] | 09/27/19 | | | Indemn | | | OOS | 4 | 15-Pre | | | ity | | | MDCR | | sent | | | | | | SUPPL | | | | | | + +--------+ +--------+ +---------+--------+ + +--------+ +--------+ + + | Guarantor Name | Accoun | Relation to | Date | Phone | Billing Address | | | t Type | Patient | of | | | | | | | | | | + +--------+ +--------+ + + | Jaclyn Garland | Person | Self | [birth year] | | | | al/Fam | | 1940 | [phone] | [place] | | | [place] | | | [address] (Home) | [address] | + +--------+ +--------+ + + Advance Directives + + + + + | Type | Date Recorded | Patient | Explanation | | | | [employer] Architect | | + + + + + | Power of | | | | | Rehabilitation Program Coordinator | | | | + + + + + | Advance | | | | | Directive | | | | + + + + +
--- OUTSIDE RECORDS SUMMARY | ~2019-10-11 | XMS | Encounter Summary ---
Demographics + + + | Address | [address] | | | [place] [address] | + + + | Home Phone | | + + + | Preferred Language | Unknown | + + + | Marital Status | | + + + | Orthodox Affiliation | Unknown | + + + | Race | Unknown | + + + | Ethnic Group | Unknown | + + + Author + + + | Author | [facility] | | | and [place] | + + + | Organization | [facility] | | | [...] Team Providers + +------+ + | Care Construction Project Manager Name | Role | Phone | [...] + + | 08/10/ | Office | [facility] | Shoshana Ortega DO | Persistent atrial | | 2019 | Visit | CARDIOLOGY [place] | [address] | fibrillation | | | | [address] | [place], [place] | (Primary Dx); On | | | | [address] | [id number] | amiodarone therapy; | | | | [place], [place] | | Dissection of aorta, | | | | [address] | | unspecified portion | | | | [phone] | | of aorta (HCC); HTN | [...] Ortega DO - 08/10/2019 1:40 PM PST [facility] Cardiology Cardiology Follow Up Note Reason [...] amiodarone. She followed up with cardiology in [place]. She was previously on anticoagulation, however, she [...] due to balance issues. She sees a director of speech pathology in [place], but is interested in transferring her care to pulmonology in [place]. She denies any recent episodes of palpitations [...] and she was referred to Pulmonology in [place]. Her 2-week event monitor was notable for [...] file Gets together: Not on file Attends voodoo service: Not on file Active member of [...] 2014 Impression: 1.Large-caliber right coronary artery with onuc-gb-azwyxfno eccentric stenosis in its proximal portion. 2.Mild [...] burden of 0.36% supraventricular ectopic beats. Also, 08[address] PVCs were recorded; this represents 5 .58% [...] [place] | | | | | | [address] | | | | | | | | +--------+---------+ + + + | 03/05/ | Office | Pulmonology | Ronan Rosas MD | | | 2019 | Visit | | [address] | | | | | | [place] | | | | | | [address] | | | | | | | [...] | | | | | by [facility] [place] Read Only, | | | | | | [facility] [place] ([id number]), | | | | | | content editor Salvatore Huggins | | | | | | ([phone]) on 08/10/2019 | | | | | [...]
--- OUTSIDE RECORDS SUMMARY | ~2019-10-11 | XMS | Encounter Summary ---
Demographics + + + | Address | [address] | | | [place] [address] | + + + | Home Phone | | + + + | Preferred Language | Unknown | + + + | Marital Status | | + + + | Baptism Affiliation | Unknown | + + + | Race | Unknown | + + + | Ethnic Group | Unknown | + + + Author + + + | Author | [facility] | | | and [place] | + + + | Organization | [facility] | | | [...] Team Providers + +------+ + | Care Ocean Rescue Lieutenant Name | Role | Phone | + +------+ + | Michael Almonte DO | PCP | | + +------+ + Reason for Visit +--------+ + | Reason | Comments | +--------+ + | Other | end of study | +--------+ + Encounter Details +--------+ + + + + | Date | Type | Department | Care Team | Description | +--------+ + + + + | 05/25/ | Documentati | [facility] | Daniela Allen, | Other (end of study) | | 2019 | on | CARDIOLOGY [place] | Technologist | | | | | [address] | | | | | | [place] | | | | | | [address] | | | | | | [phone] | | | +--------+ + + + + Social History + +-------+ [...] + + documented as of this encounter Progress Notes Daniela Allen, Technologist - 05/25/2019 11:59 PM PDT Cardiac Facetor Date of Event Monitor: 05/25/19 Referring Physician: Ruthie Patient:Jaclyn Garland : 1940 Age: 79 y.o. female INDICATIONS: Persistent atrial fibrillation Procedure: Continuous ambulatory ECG for the duration [...] burden of 0.36% supraventricular ectopic beats. Also, 10291 PVCs were recorded; this represents 5 .58% ventricular ectopic burden. There were no runs of ventricular tachycardia. No pauses or AV conduction abnormalities observed. In the patient's diary, symptoms of shortness of br eath, unspecified symptom, other symptom, headache, dizziness, palpitations, chest discomfor t were all associated with sinus bradycardia. Impressions: 1: Sinus bradycardia, as described above. 2: There was a 5.58% burden of ventricular ectopy 3: No pauses or AV conduction abnormalities detected. 4: Several symptoms were reported as above all associated with sinus bradycardia Recomendations: Clinical correlation suggested. Shoshana Ortega DO documented in this enco unter Plan of Treatment +--------+---------+ + + + | Date | Type | Specialty | Care Team | Description | +--------+---------+ + + + | 02/07/ | Office | Cardiology | Shoshana Ortega DO | | | 2019 | Visit | | [address] | | | | | | [place] | | | | | | [address] | | | | | | | | +--------+---------+ + + + | 03/05/ | Office | Pulmonology | Ronan Rosas MD | | | 2019 | Visit | | [address] | | | | | | [place] | | | | | | [address] | | | | | | | | +--------+---------+ + + + documented as of this encounter Visit Diagnoses + + | Diagnosis | + + | Persistent atrial fibrillation Atrial fibrillation | + + documented in this encounter"
--- OUTSIDE RECORDS SUMMARY | ~2019-10-11 | XMS | Encounter Summary ---
Demographics + + + | Address | [address] | | | [place] [address] | + + + | Home Phone | | + + + | Preferred Language | Unknown | + + + | Marital Status | | + + + | Mosque Affiliation | Unknown | + + + | Race | Unknown | + + + | Ethnic Group | Unknown | + + + Author + + + | Author | [facility] | | | and [place] | + + + | Organization | [facility] | | | [...] Team Providers + +------+ + | Care Dental Professional Name | Role | Phone | + +------+ + | Michael Almonte DO | PCP | | + +------+ + Encounter Details +--------+ + + + + | Date | Type | Department | Care Team | Description | +--------+ + + + + | 08/29/ | Documentati | [facility] | Grazyna Espinoza, | | | 2018 | on | PULMONOLOGY [address] | Lip Reading Teacher | | | | | [address] | | | | | | [place] | | | | | | [address] | | | | | | [phone] | | | +--------+ + + + + Social History + +-------+ +--------+ + | Tobacco Use | Types | Packs/Day | Years | Date | | | | | Used | | + +-------+ +--------+ + | Former Smoker | | 0.5 | 50 | Quit: 2012 | + +-------+ +--------+ + + +---+---+---+ [...] documented as of this encounter Progress Notes Grazyna Espinoza, Lip Reading Teacher - 08/29/2019 1:55 PM PST3 step testing Oximetry Exerci se (code) 97126 1. At rest on room air: Time:1:40 Heart rate:110 Oxygen saturations:87 2. At exercise on room air: Time: Heart rate: Oxygen saturations: 3. At exercise with oxygen: Time: Heart rate: Oxygen Saturations: Liters per minute:2 At exercise with oxygen:84 Time: Heart rate:110 Oxygen Saturations:85 Liters per minute:3 At exercise with oxygen: Time: Heart rate:113 Oxygen Saturations:87 Liters per minute:4 At exercise with oxygen: Time:1:50 Heart rate:120 Oxygen Saturations:92 Liters per minute:5 documalorie ented in this encounter Plan of Treatment +--------+---------+ + + + | Date | Type | Specialty | Care Team | Description | +--------+---------+ + + + | 02/07/ | Office | Cardiology | Shoshana Ortega DO | | | 2019 | Visit | | [address] | | | | | | [place] | | | | | | [id number] | | | | | | | | +--------+---------+ + + + | 03/05/ | Office | Pulmonology | Ronan Rosas MD | | | 2019 | Visit | | [address] | | | | | | [place] | | | | | | [address] | | | | | | | | +--------+---------+ + + + documented as of this encounter Visit Diagnoses Not on filedocumented in this encounter"
--- OUTSIDE RECORDS SUMMARY | ~2019-10-11 | XMS | Encounter Summary ---
Demographics + + + | Address | [address] | | | [place] [address] | + + + | Home Phone | | + + + | Preferred Language | Unknown | + + + | Marital Status | | + + + | Mandaeism Affiliation | Unknown | + + + [...] Team Providers + +------+ + | Care Masonry Teacher Name | Role | Phone | + [...] | | disease, | [address] | [place], [place] | | | | | unspecified | [place], [place] | [address] | | | | | COPD type | [address] | Phone: | | | | | ([facility]) | Phone: | [phone] | | | | | | [phone] | Fax: | | | | | | Fax: | [phone] | | | | | | [phone] | | + + + + + + + Encounter Details +--------+---------+ + + + | Date | Type | Department | Care Team | Description | +--------+---------+ + + + | 08/29/ | Office | [facility] | Ronan Rosas MD | Oxygen dependent | | 2019 | Visit | PULMONOLOGY [address] | [address] | (Primary Dx); Stage | | | | [address] | [place], [place] | 4 very severe COPD | | | | [place], [place] | [id number] | by GOLD | | | | [address] | | classification (HCC) | | | | [phone] | | | +--------+---------+ + + + [...] who i s being followed up in [place] for the past many years. She has recently decided to move h er care to pulmonology services close to her house as her engineering officer has also changed to [facility] clinic. The patient has a history [...] been followed up w daniel Newby in [facility]. She has been managed with [facility] which [...] file Gets together: Not on file Attends latter day service: Not on file Active member of [...] Rosas MD Pulmonary and Critical Care Medicine [facility] [address] , [place] [address] documented in this enco unter Plan of Treatment +--------+---------+ + + + | Date | Type | Specialty | Care Team | Description | +--------+---------+ + + + | 02/07/ | Office | Cardiology | Shoshana Ortega DO | | | 2019 | Visit | | [address] | | | | | | [place] | | | | | | [id number] | | | | | | | | +--------+---------+ + + + | 03/05/ | Office | Pulmonology | Ronan Rosas MD | | | 2019 | Visit | | [address] | | | | | | [place] | | | | | | [address] | | | | | | | | +--------+---------+ + + + documented as of this encounter Visit Diagnoses + + | Diagnosis | + + | Oxygen dependent - Primary Dependence on supplemental oxygen | + + | Stage 4 very 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
--- OUTSIDE RECORDS SUMMARY | ~2019-10-11 | XMS | Encounter Summary ---
Demographics + + + | Address | [address] | | | [place] [address] | + + + | Home Phone | | + + + | Preferred Language | Unknown | + + + | Marital Status | | + + + | Evangelical Affiliation | Unknown | + + + | Race | Unknown | + + + | Ethnic Group | Unknown | + + + Author + + + | Author | [facility] | | | and [place] | + + + | Organization | [facility] | | | and [...] Team Providers + +------+ + | Care Automotive Parts Counter Assistant Name | Role | Phone | [...] + + | 05/25/ | Documentati | [facility] | Daniela Allen, | Other (end of study) | | 2019 | on | CARDIOLOGY [place] | Technologist | | | | | [address] | | | | | | [place] | | | | | | [address] | | | | | | [phone] | | | +--------+ + + + [...] Technologist - 05/25/2019 11:59 PM PDT Cardiac Scrap Yard Worker Date of Event Monitor: 05/25/19 Referring Physician: [...] burden of 0.36% supraventricular ectopic beats. Also, [address] PVCs were recorded; this represents 5 .58% [...] | | | | | [place] [place] | | | | | | [address] | | | | | | | | +--------+---------+ + + + | 03/05/ | Office | Pulmonology | Ronan Rosas MD | | | 2019 | Visit | | [address] | | | | | | [place] | | | | | | [address] | | | | | | | | +--------+---------+ + + + documented as of this encounter Visit Diagnoses + + | Diagnosis | + + | Persistent atrial fibrillation Atrial fibrillation | + + documented in this encounter"
--- OUTSIDE RECORDS SUMMARY | ~2019-10-11 | XMS | Encounter Summary ---
Demographics + + + | Address | [address] | | | [place] [address] | + + + | Home Phone | | + + + | Preferred Language | Unknown | + + + | Marital Status | | + + + | Religion Affiliation | Unknown | + + + | Race | Unknown | + + + | Ethnic Group | Unknown | + + + Author + + + | Author | [facility] | | | and [place] | + + + | Organization | [facility] | | | [...] Team Providers + +------+ + | Care Biophysics Scientist Name | Role | Phone | [...] + | 10/04/ | Refill | [facility] | Alejandra Barraza | Medication Refill | | 2020 | | CARDIOLOGY [place], Nailhead Setter | | | | | [address] | | | | | | [place] | | | | | | [address] | | | | | | [phone] | | | +--------+--------+ + + + [...] [place] | | | | | | [address] | | | | | | | | +--------+---------+ + + + | 03/05/ | Office | Pulmonology | Ronan Rosas MD | | | 2019 | Visit | | [address] | | | | | | [place] | | | | | | [address] | | | | | | | | +--------+---------+ + + + documented as of this encounter Visit Diagnoses Not on filedocumented in this encounter"
--- OUTSIDE RECORDS SUMMARY | ~2019-10-11 | XMS | Encounter Summary ---
Demographics + + + | Address | [address] | | | [place] [address] | + + + | Home Phone | | + + + | Preferred Language | Unknown | + + + | Marital Status | | + + + | Latter-Day Affiliation | Unknown | + + + | Race | Unknown | + + + | Ethnic Group | Unknown | + + + Author + + + | Author | [facility] | | | and [place] | + + + | Organization | [facility] | | | [...] Team Providers + +------+ + | Care Gas Distribution Supervisor Name | Role | Phone | + [...] | | disease, | [place] [address] | [place], [place] | | | | | unspecified | [place], [place] | [address] | | | | | COPD type | [address] | Phone: | | | | | ([facility]) | Phone: | [phone] | | | | | | [phone] | Fax: | | | | | | Fax: | [phone] | | | | | | [phone] | | + + + + + [...] | | | | Venous Left | [address] | | | | | | | Phone: | | | | | | | [phone] | | | | | | | Fax: | | | | | | | [phone] | | +--------+--------+ + + + + [...] MO F | | | | | ([facility]), | [address] | [place], [place] | | | | | Presence of | [place], | [address] Phone: | | | | | other | [place] | [phone] | | | | | cardiac | [address] | Fax: | | | | | implants and | Phone: | [phone] | | | | | grafts | [phone] | | | | | | Procedures | Fax: | | | | | | Consult | [phone] | | + +--------+ + + + + Encounter Details +--------+---------+ + + + | Date | Type | Department | Care Team | Description | +--------+---------+ + + + | 05/18/ | Office | [facility] | Shoshana Ortega DO | Persistent atrial | | 2019 | Visit | CARDIOLOGY [place] | [address] | fibrillation (HCC) | | | | [address] | [place], [place] | (Primary Dx); Leg | | | | [address] | [address] | swelling; Cerebral | | | | [place], [place] | | atherosclerosis ; On | | | | [address] | | amiodarone therapy; | | | | [phone] | | Chronic obstructive | | | [...] Ortega DO - 05/18/2019 10:40 AM PDT [facility] Cardiology Cardiology Consult Note Reason for Consultation: [...] amiodarone. She followed up with cardiology in [place]. She was previously on anticoagulation, however, she [...] to balance issues. She sees a director automotive in [place], but is interested in transferring her care to pulmonology in [place]. She denies any recent episodes of palpitations [...] 2014 Impression: 1.Large-caliber right coronary artery with oubn-ya-trwbqlcu eccentric stenosis in its proximal portion. 2.Mild [...] would like to establish with pulmonology in [place], will place referral - Follow up in [...] [place] | | | | | | [address] | | | | | | | | +--------+---------+ + + + | 03/05/ | Office | Pulmonology | Ronan Rosas MD | | | 2019 | Visit | | [address] | | | | | | [place] | | | | | | [address] | | | | | | | [...] | | | | | by [facility] [place] Read Only, | | | | | | [facility] [place] ([id number]), | | | | | | medical billing representative Salvatore Huggins | | | | | | ([phone]) on 05/18/2019 | | | | | [...]
--- OUTSIDE RECORDS SUMMARY | ~2019-10-11 | XMS | Clinical Summary ---
Demographics + + + | Address | [address] | | | [place] [address] | + + + | Home Phone | | + + + | Preferred Language | Unknown | + + + | Marital Status | | + + + | Catholic Affiliation | Unknown | + + + | Race | Unknown | + + + | Ethnic Group | Unknown | + + + Author + + + | Author | [employer] (Historical as of | | | 05-13-19) | + + + | Organization | [facility] (Historical as of | | | 05-13-19) [...] Team Providers + +------+ + | Care Magneto Specialist Name | Role | Phone | + [...] +------+-------+ + | MEDICARE | MEDICA | [id number] | | | [address] | | | RE | | | | [place] [address] | | | IP-OP | | | | | + +--------+ +------+-------+ + | PREMERA | PREMER | [id number] | | | [address] [address] | | | A BLUE | 4 | | | [place], [place] | | | CARD | | | | [address] | + +--------+ +------+-------+ + + +--------+ [...] | [place] | | | [address] | [address] | + +--------+ +--------+ + +"
--- OUTSIDE RECORDS SUMMARY | ~2019-10-11 | XMS | Encounter Summary ---
Demographics + + + | Address | [address] | | | [place] [address] | + + + | Home Phone | | + + + | Preferred Language | Unknown | + + + | Marital Status | | + + + | Restoration Affiliation | Unknown | + + + | Race | Unknown | + + + | Ethnic Group | Unknown | + + + Author + + + | Author | [facility] | | | and [place] | + + + | Organization | [facility] | | [...] Team Providers + +------+ + | Care Escalator Installer Name | Role | Phone | + +------+ + | Michael Almonte DO | PCP | | + +------+ + Reason for Visit +--------+ + | Reason | Comments | +--------+ + | Other | [facility] Cardiac Care - 2014 notes | +--------+ + Encounter Details +--------+ + + + + | Date | Type | Department | Care Team | Description | +--------+ + + + + | 05/18/ | Documentati | [facility] | Alejandra Barraza | Caity ([facility] | | 2019 | on | CARDIOLOGY [place] [address] | Cardiac Care - 2014 | | | | [address] | | notes ) | | | | [address] | | | | | | [place] | | | | | | [address] | | | | | | [phone] | | | +--------+ + + + [...] 2019 | Visit | | [address] | | | | | | [place] | | | | | | [address] | | | | | | | | +--------+---------+ + + + | 03/05/ | Office | Pulmonology | Ronan Rosas MD | | | 2019 | Visit | | [address] | | | | | | [place] | | | | | | [address] | | | | | | | | +--------+---------+ + + + documented as of this encounter Visit Diagnoses Not on filedocumented in this encounter"
--- OUTSIDE RECORDS SUMMARY | ~2019-10-11 | XMS | Clinical Summary ---
Demographics + + + | Address | [address] | | | [place] [address] | + + + | Home Phone | | + + + | Preferred Language | Unknown | + + + | Marital Status | | + + + | Taoism Affiliation | Unknown | + + + | Race | Unknown | + + + | Ethnic Group | Unknown | + + + Author + + + | Author | [facility] | | | and [place] | + + + | Organization | [facility] | | [...] Team Providers + +------+ + | Care Guitar Instructor Name | Role | Phone | + [...] | | 2020 | | | [place]o Restorative Art Embalmer | | +--------+ + + + + [...] | | 2019 | on | | Restorative Art Embalmer | | +--------+ + + + + [...] | | | | | classification ([facility]) | +--------+ + + + + from [...] [place] | | | | | | [address] | | | | | | | | +--------+---------+ + + + | 03/05/ | Office | Pulmonology | Ronan Rosas MD | | | 2020 | Visit | | [address] | | | | | | [place] | | | | | | [address] | | | | | | | [...] | | | | | by [facility] [place] Read Only, | | | | | | [facility] [place] (502), | | | | | | graphic editor Salvatore Huggins | | | | | | (956) on 08/10/2019 | | | | | [...] +--------+ +---------+--------+ | MEDICARE | MEDICA | [id number] | 01/26/20 | [phone] | | Medica | | | RE | | 06-Pre | 5 | | re | | | PART A | | sent | | | | | | AND B | | | | | | + +--------+ +--------+ +---------+--------+ | BCBS | BCBS | [id number] | 09/27/19 | | | Indemn | [...] | | al/Fam | | 1940 | [phone] | [place] | | | [place] | | | 7 (Home) | [address] | + +--------+ +--------+ + + Advance Directives + + + + + | Type | Date Recorded | Patient | Explanation | | | | Head Of Partner Development | | + + + + + | Power of | | | | | Technology Lab Teacher | | | | + + + + + | Advance | | | | | Directive | | | | + + + + +
--- OUTSIDE RECORDS SUMMARY | ~2019-10-11 | XMS | Encounter Summary ---
Demographics + + + | Address | [address] | | | [place] [address] | + + + | Home Phone | | + + + | Preferred Language | Unknown | + + + | Marital Status | | + + + | Adventist Affiliation | Unknown | + + + | Race | Unknown | + + + | Ethnic Group | Unknown | + + + Author + + + | Author | [facility] | | | and [place] | + + + | Organization | [facility] | | [...] Team Providers + +------+ + | Care Transit Operator Name | Role | Phone | + +------+ + | Michael Almonte DO | PCP | | + +------+ + Reason for Visit +--------+ + | Reason | Comments | +--------+ + | Other | [place] labs 05/25/19 | +--------+ + Encounter Details +--------+ + + + + | Date | Type | Department | Care Team | Description | +--------+ + + + + | 05/26/ | Documentati | [facility] | Luisa Mckeon, | Other ([facility] | | 2019 | on | CARDIOLOGY [place] | SCHEDULING ANALYST | labs 05/25/19) | | | | [address] | | | | | | [place], [place] | | | | | | [address] | | | | | | [phone] | | | +--------+ + + + [...] [place] | | | | | | [address] | | | | | | | | +--------+---------+ + + + | 03/05/ | Office | Pulmonology | Ronan Rosas MD | | | 2019 | Visit | | [address] | | | | | | [place] | | | | | | [address] | | | | | | | | +--------+---------+ + + + documented as of this encounter Visit Diagnoses Not on filedocumented in this encounter"
--- OUTSIDE RECORDS SUMMARY | ~2019-10-11 | XMS | Encounter Summary ---
Demographics + + + | Address | [address] | | | [place] [address] | + + + | Home Phone | | + + + | Preferred Language | Unknown | + + + | Marital Status | | + + + | Bahai Affiliation | Unknown | + + + | Race | Unknown | + + + | Ethnic Group | Unknown | + + + Author + + + | Author | [facility] | | | and [place] | + + + | Organization | [facility] | | | [...] Team Providers + +------+ + | Care Field Supervisor Seed Production Name | Role | Phone | + +------+ + | Michael Almonte DO | PCP | | + +------+ + Encounter Details +--------+ + + + + | Date | Type | Department | Care Team | Description | +--------+ + + + + | 08/29/ | Documentati | [facility] | Grazyna Espinoza, | | | 2018 | on | PULMONOLOGY [address] | Dining Room Helper | | | | | [address] | | | | | | [place] | | | | | | [address] | | | | | | [phone] | | | +--------+ + + + [...] of this encounter Progress Notes Grazyna Espinoza, Dining Room Helper - 08/29/2019 1:55 PM PST3 step testing Oximetry Exerci se (code) [id number] 1. At rest on room air: Time:1:40 [...] [place] | | | | | | [id number] | | | | | | | | +--------+---------+ + + + | 03/05/ | Office | Pulmonology | Ronan Rosas MD | | | 2019 | Visit | | [address] | | | | | | [place] | | | | | | [address] | | | | | | | | +--------+---------+ + + + documented as of this encounter Visit Diagnoses Not on filedocumented in this encounter"
--- OUTSIDE RECORDS SUMMARY | ~2019-10-11 | XMS | Clinical Summary ---
Demographics + + + | Address | [address] | | | [place] [address] | + + + | Home Phone | | + + + | Preferred Language | Unknown | + + + | Marital Status | | + + + | Mandaen Affiliation | Unknown | + + + | Race | Unknown | + + + | Ethnic Group | Unknown | + + + Author + + + | Author | [facility] (Historical as of | | | 05-13-19) | + + + | Organization | [facility] (Historical as of | | | 05-13-19) [...] Team Providers + +------+ + | Care Vp Mobile Products Name | Role | Phone | + [...] +------+-------+ + | MEDICARE | MEDICA | [id number] | | | [address] | | | RE | | | | [place] [phone] | | | IP-OP | | | | | + +--------+ +------+-------+ + | PREMERA | PREMER | [id number] | | | [address] [address] | | | A BLUE | 4 | | | [place], [place] | | | CARD | | | | [address] | + +--------+ +------+-------+ + + +--------+ [...] | briseida | | | [address] | [address] | + +--------+ +--------+ + +"
--- OUTSIDE RECORDS SUMMARY | ~2019-10-11 | XMS | Encounter Summary ---
Demographics + + + | Address | [address] | | | [place] [address] | + + + | Home Phone | | + + + | Preferred Language | Unknown | + + + | Marital Status | | + + + | Mormonism Affiliation | Unknown | + + + | Race | Unknown | + + + | Ethnic Group | Unknown | + + + Author + + + | Author | [facility] | | | and [place] | + + + | Organization | [facility] | | | and [...] Team Providers + +------+ + | Care Foam Rubber Molder Name | Role | Phone | + [...] | | disease, | JORGE F | [place], [place] | | | | | unspecified | [place], [place] | [address] | | | | | COPD type | [address] | Phone: | | | | | ([facility]) | Phone: | [phone] | | | | | | [phone] | Fax: | | | | | | Fax: | [phone] | | | | | | [phone] | | + + + + + + + Encounter Details +--------+---------+ + + + | Date | Type | Department | Care Team | Description | +--------+---------+ + + + | 08/29/ | Office | [facility] | Ronan Rosas MD | Oxygen dependent | | 2019 | Visit | PULMONOLOGY [address] | [address] | (Primary Dx); Stage | | | | [address] | [place] E [place], [place] | 4 very severe COPD | | | | [place], [place] | [id number] | by GOLD | | | | [address] | | classification (HCC) | | | | [phone] | | | +--------+---------+ + + + [...] who i s being followed up in [place] for the past many years. She has recently decided to move h er care to pulmonology services close to her house as her eddy current inspector has also changed to [facility] clinic. The patient has a history of [...] been followed up w daniel Newby in [facility]. She has been managed with [facility] which [...] file Gets together: Not on file Attends congregational service: Not on file Active member of [...] Rosas MD Pulmonary and Critical Care Medicine [facility] [address] , [place] [address] documented in this enco unter Plan of Treatment +--------+---------+ + + + | Date | Type | Specialty | Care Team | Description | +--------+---------+ + + + | 02/07/ | Office | Cardiology | Shoshana Ortega DO | | | 2019 | Visit | | [address] | | | | | | [place] | | | | | | [id number] | | | | | | | | +--------+---------+ + + + | 03/05/ | Office | Pulmonology | Ronan Rosas MD | | | 2019 | Visit | | [address] | | | | | | [place] | | | | | | [address] | | | | | | | | +--------+---------+ + + + documented as of this encounter Visit Diagnoses + + | Diagnosis | + + | Oxygen dependent - Primary Dependence on supplemental oxygen | + + | Stage 4 very 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
--- OUTSIDE RECORDS SUMMARY | ~2019-10-11 | XMS | Encounter Summary ---
Demographics + + + | Address | [address] | | | [place] [address] | + + + | Home Phone | | + + + | Preferred Language | Unknown | + + + | Marital Status | | + + + | Advent Affiliation | Unknown | + + + | Race | Unknown | + + + | Ethnic Group | Unknown | + + + Author + + + | Author | [facility] | | | and [place] | + + + | Organization | [facility] | | | [...] Team Providers + +------+ + | Care Branch Employment Coordinator Name | Role | Phone | [...] | | disease, | [address] | [place], [place] | | | | | unspecified | [place], [place] | [address] | | | | | COPD type | [address] | Phone: | | | | | ([facility]) | Phone: | [phone] | | | | | | [phone] | Fax: | | | | | | Fax: | [phone] | | | | | | [phone] | | + + + + + [...] | | | | Venous Left | [address] | | | | | | | Phone: | | | | | | | [phone] | | | | | | | Fax: | | | | | | | [phone] | | +--------+--------+ + + + + [...] F | | | | | ([facility]), | [address] | [place], [place] | | | | | Presence of | [place], | [address] Phone: | | | | | other | [place] | [phone] | | | | | cardiac | [address] | Fax: | | | | | implants and | Phone: | [phone] | | | | | grafts | [phone] | | | | | | Procedures | Fax: | | | | | | Consult | [phone] | | + +--------+ + + + + Encounter Details +--------+---------+ + + + | Date | Type | Department | Care Team | Description | +--------+---------+ + + + | 05/18/ | Office | [facility] | Shoshana Ortega DO | Persistent atrial | | 2019 | Visit | CARDIOLOGY [place] | [address] | fibrillation (HCC) | | | | [address] | [place], [place] | (Primary Dx); Leg | | | | [address] | [address] | swelling; Cerebral | | | | [place], [place] | | atherosclerosis ; On | | | | [address] | | amiodarone therapy; | | | | [phone] | | Chronic obstructive | | | [...] Ortega DO - 05/18/2019 10:40 AM PDT [facility] Cardiology Cardiology Consult Note Reason [...] amiodarone. She followed up with cardiology in [place]. She was previously on anticoagulation, however, she [...] due to balance issues. She sees a recordist chief in [place], but is interested in transferring her care to pulmonology in [place]. She denies any recent episodes of palpitations [...] 2014 Impression: 1.Large-caliber right coronary artery with pzsq-te-bfgltlux eccentric stenosis in its proximal portion. 2.Mild [...] would like to establish with pulmonology in [place], will place referral - Follow up in [...] [place] | | | | | | [address] | | | | | | | | +--------+---------+ + + + | 03/05/ | Office | Pulmonology | Ronan Rosas MD | | | 2019 | Visit | | [address] | | | | | | [place] | | | | | | [address] | | | | | | | [...] | | | | | by [employer] [place] Read Only, | | | | | | [employer] Lluvia ([id number]), | | | | | | video tape editor Salvatore Huggins | | | | | | ([id number]) on 05/18/2019 | | | | | [...]
--- OUTSIDE RECORDS SUMMARY | ~2019-10-11 | XMS | Encounter Summary ---
Demographics + + + | Address | [address] | | | [place] [address] | + + + | Home Phone | | + + + | Preferred Language | Unknown | + + + | Marital Status | | + + + | Hindu Affiliation | Unknown | + + + | Race | Unknown | + + + | Ethnic Group | Unknown | + + + Author + + + | Author | [facility] | | | and [place] | + + + | Organization | [facility] | | | [...] Team Providers + +------+ + | Care Manager Php Name | Role | Phone | + [...] + + | 08/10/ | Office | [facility] | Shoshana Ortega DO | Persistent atrial | | 2019 | Visit | CARDIOLOGY [place] | [address] | fibrillation | | | | [address] | [place], [place] | (Primary Dx); On | | | | [address] | [id number] | amiodarone therapy; | | | | [place], [place] | | Dissection of aorta, | | | | [address] | | unspecified portion | | | | [phone] | | of aorta (HCC); HTN | [...] documented in this encounter Progress Notes Shoshana Orteag DO - 08/10/2019 1:40 PM PST [facility] Cardiology Cardiology Follow Up Note Reason for [...] amiodarone. She followed up with cardiology in [place]. She was previously on anticoagulation, however, she [...] due to balance issues. She sees a professor of mathematics in [place], but is interested in transferring her care to pulmonology in [place]. She denies any recent episodes of palpitations [...] and she was referred to Pulmonology in [place]. Her 2-week event monitor was notable for [...] file Gets together: Not on file Attends muslim service: Not on file Active member of [...] 2014 Impression: 1.Large-caliber right coronary artery with mqbv-ot-ntmpmhei eccentric stenosis in its proximal portion. 2.Mild [...] burden of 0.36% supraventricular ectopic beats. Also, 76[address] PVCs were recorded; this represents 5 .58% [...] [place] | | | | | | [address] | | | | | | | | +--------+---------+ + + + | 03/05/ | Office | Pulmonology | Ronan Rosas MD | | | 2019 | Visit | | [address] | | | | | | [place] | | | | | | [address] | | | | | | | [...] | | | | | by [employer] [place] Read Only, | | | | | | [employer] Lluvia ([id number]), | | | | | | editor & co founder Salvatore Huggins | | | | | | ([id number]) on 08/10/2019 | | | | | [...]
--- OUTSIDE RECORDS SUMMARY | ~2019-10-11 | XMS | Encounter Summary ---
Demographics + + + | Address | [address] | | | [place] [address] | + + + | Home Phone | | + + + | Preferred Language | Unknown | + + + | Marital Status | | + + + | Episcopalian Affiliation | Unknown | + + + [...] Team Providers + +------+ + | Care Pear Picker Name | Role | Phone | + +------+ + | Michael Almonte DO | PCP | | + +------+ + Reason for Visit +--------+ + | Reason | Comments | +--------+ + | Other | [facility] labs 05/25/19 | +--------+ + Encounter Details +--------+ + + + + | Date | Type | Department | Care Team | Description | +--------+ + + + + | 05/26/ | Documentati | [facility] | Luisa Mckeon, | Other ([facility] | | 2019 | on | CARDIOLOGY [place] | TOOL AND DIE ASSEMBLER | labs 05/25/19) | | | | [address] | | | | | | [place], [place] | | | | | | [address] | | | | | | [phone] | | | +--------+ + + + [...] [place] | | | | | | [address] | | | | | | | | +--------+---------+ + + + | 03/05/ | Office | Pulmonology | Ronan Rosas MD | | | 2019 | Visit | | [address] | | | | | | [place] | | | | | | [address] | | | | | | | | +--------+---------+ + + + documented as of this encounter Visit Diagnoses Not on filedocumented in this encounter"
--- OUTSIDE RECORDS SUMMARY | ~2019-10-11 | XMS | Encounter Summary ---
Demographics + + + | Address | [address] | | | [place] [address] | + + + | Home Phone | | + + + | Preferred Language | Unknown | + + + | Marital Status | | + + + | Islam Affiliation | Unknown | + + + [...] Team Providers + +------+ + | Care Country Director Name | Role | Phone | + +------+ + | Michael Almonte DO | PCP | | + +------+ + Reason for Visit +--------+ + | Reason | Comments | +--------+ + | Other | [facility] Cardiac Care - 2014 notes | +--------+ + Encounter Details +--------+ + + + + | Date | Type | Department | Care Team | Description | +--------+ + + + + | 05/18/ | Documentati | [facility] | Alejandra Barraza | [facility] | | 2019 | on | CARDIOLOGY [place] [facility] [employer] Programmer | Cardiac Care - 2014 | | | | [address] | | notes ) | | | | [address] | | | | | | [place] | | | | | | [address] | | | | | | [phone] | | | +--------+ + + + [...] [place] | | | | | | [address] | | | | | | | | +--------+---------+ + + + | 03/05/ | Office | Pulmonology | Ronan Rosas MD | | | 2019 | Visit | | [address] | | | | | | [place] | | | | | | [address] | | | | | | | | +--------+---------+ + + + documented as of this encounter Visit Diagnoses Not on filedocumented in this encounter"
--- OUTSIDE RECORDS SUMMARY | ~2019-10-11 | XMS | Encounter Summary ---
Demographics + + + | Address | [address] | | | [place] [address] | + + + | Home Phone | | + + + | Preferred Language | Unknown | + + + | Marital Status | | + + + | Zoroastrianism Affiliation | Unknown | + + + | Race | Unknown | + + + | Ethnic Group | Unknown | + + + Author + + + | Author | [facility] | | | and [place] | + + + | Organization | [facility] | | [...] Team Providers + +------+ + | Care Policeman Name | Role | Phone | + [...] + + | 05/25/ | Clinical | [facility] | Shoshana Ortega DO | Persistent atrial | | 2019 | Support | CARDIOLOGY [place] | [address] | fibrillation (HCC) | | | | [address] | [place] | | | | | [address] | [address] | | | | | [place] | | | | | | [address] | Oskar Quiles, | | | | | [phone] | MD [address] | | | | | | [place] | | | | | | [address] | | | | | | | [...] of this encounter Progress Notes Alejandra Barraza, Candle Wrapping Machine Operator - 05/25/2019 1:45 PM PDTCardiac Event Monitor placed on patient. EOB/Billing information discussed. Instructions given and understood. Patient instructed to call [employer] for any billing or monitor questions. JDW:PRESSURE TEST OPERATOR-AAMA. [facility] umented in this encounter Plan of Treatment +--------+---------+ + + + | Date | Type | Specialty | Care Team | Description | +--------+---------+ + + + | 02/07/ | Office | Cardiology | Shoshana Ortega DO | | | 2019 | Visit | | [address] | | | | | | [place] | | | | | | [phone] | | | | | | | | +--------+---------+ + + + | 03/05/ | Office | Pulmonology | Ronan Rosas MD | | | 2019 | Visit | | [address] | | | | | | [place] | | | | | | [phone] | | | | | | | | +--------+---------+ + + + documented as of this encounter Visit Diagnoses + + | Diagnosis | + + | Persistent atrial fibrillation Atrial fibrillation | + + documented in this encounter"
--- OUTSIDE RECORDS SUMMARY | ~2019-10-11 | XMS | Encounter Summary ---
Demographics + + + | Address | [address] | | | [place] [address] | + + + | Home Phone | | + + + | Preferred Language | Unknown | + + + | Marital Status | | + + + | Restorationism Affiliation | Unknown | + + + | Race | Unknown | + + + | Ethnic Group | Unknown | + + + Author + + + | Author | [facility] | | | and [place] | + + + | Organization | [facility] | | | [...] Team Providers + +------+ + | Care Ride Mechanic Name | Role | Phone | + [...] + + | 05/25/ | Clinical | [facility] | Shoshana Ortega DO | Persistent atrial | | 2019 | Support | CARDIOLOGY [place] | [address] | fibrillation (HCC) | | | | [address] | [place] | | | | | [address] | [address] | | | | | [place] | | | | | | [address] | Oskar Quiles, | | | | | [phone] | MD [address] | | | | | | [place] | | | | | | [address] | | | | | | | [...] of this encounter Progress Notes Alejandra Barraza, Major Assembly Lineman - 05/25/2019 1:45 PM PDTCardiac Event Monitor placed on patient. EOB/Billing information discussed. Instructions given and understood. Patient instructed to call [employer] for any billing or monitor questions. JDW:FAST FOOD DELIVERY DRIVER-AAMA. [facility] umented in this encounter Plan of Treatment +--------+---------+ + + + | Date | Type | Specialty | Care Team | Description | +--------+---------+ + + + | 02/07/ | Office | Cardiology | Shoshana Ortega DO | | | 2019 | Visit | | [address] | | | | | | [place] | | | | | | [id number] | | | | | | | | +--------+---------+ + + + | 03/05/ | Office | Pulmonology | Ronan Rosas MD | | | 2019 | Visit | | [address] | | | | | | [place] | | | | | | [phone] | | | | | | | | +--------+---------+ + + + documented as of this encounter Visit Diagnoses + + | Diagnosis | + + | Persistent atrial fibrillation Atrial fibrillation | + + documented in this encounter"
[~2019-10-11 03:20] MED LIST changes: +NORCO 5-325 TA1 EACH PO
== END 2019-10-11 05:29 | disposition home or self-care (01) ==
LOC: ED 03:20
DX: R58 Hemorrhage, not elsewhere classified (principal); M79.652 Pain in left thigh; T40.2X5A Adverse effect of other opioids, initial encounter; I10 Essential (primary) hypertension; J44.9 Chronic obstructive pulmonary disease, unspecified; K21.9 Gastro-esophageal reflux disease without esophagitis; Z87.891 Personal history of nicotine dependence; Z88.5 Allergy status to narcotic agent; Z79.899 Other long term (current) drug therapy; Z79.51 Long term (current) use of inhaled steroids; Z79.82 Long term (current) use of aspirin; Z99.81 Dependence on supplemental oxygen
CPT/HCPCS: 96374; 99283-25; J1885

== ENCOUNTER 2019-10-15 21:27 | Observation (INO) | payer MEDICARE, BC ==
[~2019-10-15] VITALS: Ht 172.7 cm; Wt 74.8 kg
[2019-10-15] MEDS ORDERED: KEFLEX500 MG PO (22:16)
[2019-10-15] MEDS ORDERED: LASIX20 MG PO (22:16)
[2019-10-15] MEDS ORDERED: K-TAB ER20 MEQ PO (22:17)
[2019-10-15] MEDS ORDERED: VENTOLIN HFA18 GM INH (22:17)
[2019-10-15] MEDS ORDERED: CINNAMON500 MG PO (22:18)
[2019-10-15] MEDS ORDERED: MELATONIN10 MG PO (22:18)
[2019-10-15] MEDS ORDERED: ULTRAM50 MG PO (22:19)
[2019-10-15] MEDS ORDERED: MULTI-VITAMIN1 EACH PO (22:19)
--- NOTE | 2019-10-15 23:15 | NUR ---
I WAS CONTACTED BY RN JOEL PARK REGARDING PT. SHE WAS JORGE IN BY EMT'S UNRESPONSIVE. HER OSMANY IS AT BS. HE BEGAN TO SHARE WITH ME THE DAYS EVENTS, AND HOW HE NOTICED PT SEEMED TO DECLINE THE DAY WORE ON FOLLOWING HER CHILDREN'S DEPARTURE. THEY HAD BEEN IN TOWN FOR A VISIT. 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 HE ALLOWED ME TO PRAY FOR AND WITH THEM. BOTTLE FILLERPADILLA JURADO IS NOW HERE AND WILL CONTINUE CARE. WILL FOLLOW NEEDED
--- NOTE | 2019-10-16 00:47 | NUR ---
PT ARRIVES TO FLOOR VIA STRETCHER. PT TRANSFERED TO BED WITH HOVER MAT. PT'S AND PASTORAL CARE ACCOMPANYING PT. PT REPOSITIONED. PT'S PROVIDED WITH COFFEE, JAVIER RN REMAINS AT BEDSIDE TO COMPLETE ADMISSION PROCESS.
--- NOTE | 2019-10-16 00:49 | NUR ---
Assumed primary care from Pastor Ocampo upon arrival. PT remained unresponsive. Care transitioned to comfort measures after indicated irreversible condition. confirmed PT wished no heroic measures. Dr. Nathan showed tremendous compassion in consult. His attentive care was appreciated. was sad but not shocked by prognosis. He allowed me to pray with and for them. PT was admitted. Settled PT and into room. Will follow as needed. 0057: PT passed.
--- NOTE | 2019-10-16 00:50 | NUR ---
PT TOTAL DEPENDENT TO PULL PT FROM STRETCHER TO BED. NON RESPONSIVE, WITH SHALLOW BREATHS, AT BEDSIDE.
--- NOTE | 2019-10-16 00:50 | NUR ---
SPREADING MACHINE OPERATOR ASKS JEWEL HOLE ROUGH OPENER TO CHECK ON PT TOGETHER. COLOR HAS LEFT PT'S FACE. PT DOES NOT APPEAR TO BE BREATHING. ABSENCE OF APICAL PULSE FOR 1 MIN. MD NOTIFIED. GERMAN TEACHER NOTIFIED.
--- NOTE | 2019-10-16 01:39 | NUR ---
PT has passed. Offered prayer of commendation. Placed passage quilt. indicated [place] as choice for home. Indicated he had successfully contacted son, who would work on contacting rest of the family. left for home. Assured him we sould care for Jaclyn odalis Sotomayor arrived. Waiting air conditioning coil assembler from tissue bank. Will call as soon as cleared.
--- NOTE | 2019-10-16 02:50 | NUR ---
Family consented to tissue donation. Tissue bank approved release of body to home because they cannot get a team here until morning. Asked that home be notified that PT is tissue donor. Insurance Sales Producer notified home and relayed that information. Retrieved passage quilt and returned to office. House Sup will meet at loading dock. Will follow as needed.
--- NOTE | 2019-10-16 14:09 | EKG ---
[facility] [address] [place], [place] [address] Signed Junctional rhythm with premature ventricular complexes and fusion complexes Left bundle branch block Abnormal ECG When compared with ECG of 15-OCT-2019 22:22, (Unconfirmed) Previous ECG has undetermined rhythm, needs review Confirmed by VIKASH BREWER DO ([id number]) on 10/16/2019 2:09:32 PM Electronically Signed By: VIKASH BREWER DO 10/16/19 1409 PATIENT NAME: NGHIA WILEY Electrocardiogram DATE OF : 42 PHYSICIAN: VIKASH BREWER DO REPORT #: [id number] REPORT IS CONFIDENTIAL AND NOT TO BE RELEASED WITHOUT AUTHORIZATION
--- NOTE | 2019-10-16 14:10 | EKG ---
[facility] [address] [facility] [place] [address] Signed Junctional rhythm Rightward axis Left bundle branch block Abnormal ECG When compared with ECG of 15-OCT-2019 21:33, (Unconfirmed) Current undetermined rhythm precludes rhythm comparison, needs review Left bundle branch block has replaced Nonspecific intraventricular block Borderline criteria for Lateral infarct are no longer present Confirmed by VIKASH BREWER DO ([id number]) on 10/16/2019 2:09:46 PM Electronically Signed By: VIKASH BREWER DO 10/16/19 1410 PATIENT NAME: NGHIA WILEY Electrocardiogram DATE OF : 42 PHYSICIAN: VIKASH BREWER DO REPORT #: [id number] REPORT IS CONFIDENTIAL AND NOT TO BE RELEASED WITHOUT AUTHORIZATION
== END 2019-10-16 03:50 ==
LOC: ED 21:27 → MS 21:28
PROVIDERS: ADMIT Student in an Organized Health Care Education/Training Program
DX: J96.21 Acute and chronic respiratory failure with hypoxia (principal); G93.41 Metabolic encephalopathy; Z51.5 Encounter for palliative care; J44.9 Chronic obstructive pulmonary disease, unspecified; K21.9 Gastro-esophageal reflux disease without esophagitis; I10 Essential (primary) hypertension; E78.00 Pure hypercholesterolemia, unspecified; R00.0 Tachycardia, unspecified; Z99.81 Dependence on supplemental oxygen; Z88.5 Allergy status to narcotic agent; Z86.73 Personal history of transient ischemic attack (TIA), and cerebral infarction without residual deficits; Z87.891 Personal history of nicotine dependence; Z79.82 Long term (current) use of aspirin; Z79.891 Long term (current) use of opiate analgesic; Z79.899 Other long term (current) drug therapy
CPT/HCPCS: 36415; 51702; 71045; 80053; 81001; 83605; 84484; 85025; 87088; 93005; 93010; 94660; 99285-25; J0282; J2060; J2270